=== PATIENT | female | born 1995 | race Caucasian/White ===

== ENCOUNTER 2020-04-07 15:25 | Emergency (ER) | payer OTHER, SELFPAY ==
[2020-04-07 15:35] VITALS: BP 124/80; PULSE 96; RESP 18; TEMP 36.8; O2SAT 99
--- NOTE | 2020-04-07 15:45 | ED.GENADULT ---
HPI - General Adult General Chief complaint: Ear Stated complaint: right ear pain/face pain Time Seen by Provider: 04/07/20 15:49 Source: patient Mode of arrival: ambulatory Limitations: no limitations History of Present Illness HPI narrative: 25-year-old female patient presents to the [facility] with complaints of right ear pain that started this morning. Patient states that she was eating this morning and states had a pop to the right ear immediately started having pain as well as some drainage from the ear. Patient denies any pain go to the ear before this occurred. Patient feels like she is having pain and swelling along the whole right side of the face now. Denies any fevers, chest pain or shortness of breath. Denies any runny nose, stuffy nose or sore throat. Related Data Home Medications Medication Instructions Recorded Confirmed No Home Medications 04/07/20 04/07/20 Allergies Allergy/AdvReac Type Severity Reaction Status Date / Time aspirin Allergy Intermediate Nausea and Verified 04/07/20 15:50 Vomiting tramadol Allergy Intermediate Hives / Verified 04/07/20 15:50 Red Face amoxicillin Allergy Unknown n/v Verified 04/07/20 15:50 ketorolac Allergy Unknown HIVES Verified 04/07/20 15:50 codeine AdvReac Intermediate Nausea and Verified 04/07/20 15:50 Vomiting Review of Systems Review of Systems: Narrative: CONSTITUTIONAL: Denies fever, chills, or sweats. EYES: Denies visual changes, redness, or discharge. ENT: Denies rhinorrhea, congestion, sore throat, positive right otalgia. CARDIOVASCULAR: Denies chest pain, palpitations, or edema. RESPIRATORY: Denies cough or dyspnea. GASTROINTESTINAL: Denies abdominal pain, nausea, vomiting, or diarrhea. GENITOURINARY: Denies dysuria or hematuria. SKIN: Denies rash or itching. MUSCULOSKELETAL: Denies back pain, joint pain, or myalgia. NEUROLOGIC: Denies headache, numbness, or weakness. PSYCHIATRIC: Denies anxiety or depression. [facility] Past Medical History Medical History Asthma GERD (gastroesophageal reflux disease) HTN (hypertension) Surgical History Surgical History Hx of tonsillectomy Social History Social History Smoking status: Never smoker Second hand tobacco smoke exposure: Yes Comments At the time of my signature I agree with nursing past medical history, surgical, social, and family history. There is no relevant family history pertinent to the presenting complaint. Exam Narrative: Exam Narrative: GENERAL: Well-appearing, well-nourished, and in no acute distress. HEAD: Normocephalic, atraumatic. EYES: PERRLA and EOMI. ENT: Nares clear, no rhinorrhea or epistaxis. Mucous membranes moist. Posterior pharynx no erythema, tonsil enlargement, exudates or lesions present. Left TM is clear with no erythema or foreign bodies to canal. There is some fluid noted around the right TM unable to fully see if there is a perforation or not. Patient does have sensitivity to manipulation of the outer ear. NECK: Supple. No lymphadenopathy CHEST: Clear to auscultation. No respiratory distress. HEART: Regular rate and rhythm. No murmur heard. Normal peripheral pulses. ABDOMEN: Soft, nontender, nondistended, normal active bowel sounds. EXTREMITIES: Normal range of motion. No edema. SKIN: Warm, dry, no rash. NEURO: No focal deficits. Alert and oriented x3. Course Vital Signs Vital signs: Vital Signs Temperature 36.8 C 04/07/20 15:35 Pulse Rate 96 04/07/20 15:35 Respiratory Rate 18 04/07/20 15:35 Blood Pressure 124/80 04/07/20 15:35 Pulse Oximetry 99 04/07/20 15:35 Temperature 36.8 C 04/07/20 15:35 Pulse Rate 96 04/07/20 15:35 Respiratory Rate 18 04/07/20 15:35 Blood Pressure 124/80 04/07/20 15:35 Pulse Oximetry 99 04/07/20 15:35 Vital signs revie
== END 2020-04-07 16:00 | disposition home or self-care (01) ==
PROVIDERS: Emergency Provider Nurse Practitioner Family; PCP Family Medicine
DX: H66.91 Otitis media, unspecified, right ear (principal); J45.909 Unspecified asthma, uncomplicated; K21.9 Gastro-esophageal reflux disease without esophagitis; I10 Essential (primary) hypertension
CPT/HCPCS: 99213; G0463

== ENCOUNTER 2020-04-24 16:21 | Emergency (ER) | payer OTHER, SELFPAY ==
[2020-04-24 16:25] VITALS: BP 130/80; PULSE 81; RESP 20; TEMP 37.2; O2SAT 100
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
== END 2020-04-24 16:56 | disposition home or self-care (01) ==
PROVIDERS: Emergency Provider Nurse Practitioner
DX: M54.6 Pain in thoracic spine (principal); M54.5 Low back pain; V49.40XD Driver injured in collision with unspecified motor vehicles in traffic accident, subsequent encounter
CPT/HCPCS: 99213; G0463

== ENCOUNTER 2021-01-27 16:17 | Emergency (ER) | payer OTHER, SELFPAY ==
[2021-01-27 16:25] VITALS: BP 126/70; PULSE 83; RESP 16; TEMP 36.6; O2SAT 100
--- NOTE | 2021-01-27 17:13 | ED.EAR ---
HPI - Ear Problem General Chief complaint: Ear Stated complaint: ear infection Time Seen by Provider: 01/27/21 16:50 Source: patient, RN notes reviewed and old records reviewed Mode of arrival: ambulatory Limitations: no limitations History of Present Illness HPI Narrative: 25 year old female presents to [facility] care with complaints of right ear pain, pain to area in front of right ear and also pain to upper right jaw,denies any dental pain or known caries in right jaw for the past 2 days. Patient reports that she has had some sinus drainage, denies any cough, shortness of breath or any know fevers, chills or sweats. Patient states that she has had ear tubes in the past, taking Tylenol for her discomfort. MD Complaint: ear pain Location: right ear Discharge from ear: Reports no Associated symptoms ear: rhinorrhea Treatment prior to arrival: oral analgesic Related Data Home Medications Medication Instructions Recorded Confirmed metformin mg 01/27/21 norethindrone-e.estradiol-iron tablet 01/27/21 01/27/21 [10/21 ()] Allergies Allergy/AdvReac Type Severity Reaction Status Date / Time aspirin Allergy Intermediate Nausea and Verified 01/27/21 16:23 Vomiting tramadol Allergy Intermediate Hives / Verified 01/27/21 16:23 Red Face amoxicillin Allergy Unknown n/v Verified 01/27/21 16:23 ketorolac Allergy Unknown HIVES Verified 01/27/21 16:23 ibuprofen Allergy Gastrointestinal Verified 01/27/21 16:23 Upset latex Allergy Rash Verified 01/27/21 16:35 codeine AdvReac Intermediate Nausea and Verified 01/27/21 16:23 Vomiting Review of Systems Review of Systems: Narrative: CONSTITUTIONAL: Denies fever, chills, or sweats. EYES: Denies visual changes, redness, or discharge. ENT: Positive clear rhinorrhea, no congestion, sore throat, positive right earotalgia. CARDIOVASCULAR: Denies chest pain, palpitations, or edema. RESPIRATORY: Denies cough or dyspnea. GASTROINTESTINAL: Denies abdominal pain, nausea, vomiting, or diarrhea. GENITOURINARY: Denies dysuria or hematuria. SKIN: Denies rash or itching. MUSCULOSKELETAL: Denies back pain, joint pain, or myalgia. NEUROLOGIC: Denies headache, numbness, or weakness. PSYCHIATRIC: Denies anxiety or depression. All systems reviewed & are unremarkable except as noted in HPI and below PMFSH Past Medical History Medical History (Updated 02/04/21 @ 14:05 by Jillian Clark NP) Asthma GERD (gastroesophageal reflux disease) HTN (hypertension) Surgical History Surgical History (Updated 02/04/21 @ 14:01 by Jillian Clark NP) History of placement of ear tubes Hx of tonsillectomy Family History Family History (Updated 02/04/21 @ 14:03 by Jillian Clark NP) Mother Breast cancer Grandparent Breast cancer History of kidney cancer Father Hypertension Cerebrovascular accident Sibling Lung cancer Social History Social History (Updated 02/04/21 @ 14:03 by Jillian Clark NP) Smoking status: Never smoker Second hand tobacco smoke exposure: Yes Alcohol intake: never Substance use: never Living arrangements: with family Comments At time of signature, agree with nursing past medical, surgical, social and family history. There is no relevant family history pertinent to the presenting complaint Exam Narrative: Exam Narrative: GENERAL: Well-appearing, well-nourished, and in no acute distress. HEAD: Normocephalic, atraumatic. EYES: PERRLA and EOMI. ENT: Nares red swollen turbinates,clear rhinorrhea no epistaxis. Mucous membranes moist.Right TM red with dull light reflex, Left TM normal with good light reflex noted, Throat pink with no lesions or exudates, no tonsil swelling noted, no Jeffrey angina, no evidence of dental abscess or caries in upper teeth on right. NECK: Supple.no lymphadenopathy CHEST: Clear to auscultation. No respiratory distress.SAO2 100% on room air HEART: Regular rate and rhythm. No murmur heard. Normal periphe
== END 2021-01-27 17:34 | disposition home or self-care (01) ==
PROVIDERS: Emergency Provider Registered Nurse; PCP Family Medicine
DX: H65.01 Acute serous otitis media, right ear (principal); J45.909 Unspecified asthma, uncomplicated; K21.9 Gastro-esophageal reflux disease without esophagitis; I10 Essential (primary) hypertension
CPT/HCPCS: 99213; G0463

== ENCOUNTER 2021-05-11 13:26 | Emergency (ER) | payer OTHER, SELFPAY ==
--- NOTE | 2021-05-11 13:27 | ED.URI ---
HPI - URI/Sore Throat General Chief Complaint: Upper Respiratory Infection Stated Complaint: Fatigue, sore Throat, congestion, headache Time Seen by Provider: 05/11/21 13:27 Source: patient and RN notes reviewed History of Present Illness HPI Narrative: Patient is a 26-year-old female who presents the urgent care with complaints of fatigue, sore throat, congestion and headache. Patient states that she has had positive a positive contact with her nephew. Patient son's father is also currently being tested for Covid. Patient states that she thinks that she has strep due to her sore throat . Reports of symptoms starting approximately 4 to 5 days ago. Patient states that even if she has a positive test of Covid that her employer will still make her show up to work . Patient plans to follow-up at a local testing site with her mother for outpatient testing. Patient states that she has been using [id number] cold and flu medication for her symptoms. No other acute complaints. No acute distress noted. Patient aware of the plan of care. Some parts of this dictation were generated by voice recognition software and may contain typographical and/or grammatical inaccuracies. Related Data Home Medications Medication Instructions Recorded Confirmed buspirone [BuSpar] 5 mg PO BID 05/11/21 05/11/21 metformin 500 mg PO DAILY 05/11/21 05/11/21 norethindrone-e.estradiol-iron 1 tablet PO DAILY 05/11/21 05/11/21 [ (28)] Allergies Allergy/AdvReac Type Severity Reaction Status Date / Time aspirin Allergy Intermediate Nausea and Verified 05/11/21 13:39 Vomiting tramadol Allergy Intermediate Hives / Verified 05/11/21 13:39 Red Face amoxicillin Allergy Unknown n/v Verified 05/11/21 13:39 ketorolac Allergy Unknown HIVES Verified 05/11/21 13:39 ibuprofen Allergy Gastrointestinal Verified 05/11/21 13:39 Upset latex Allergy Rash Verified 05/11/21 13:39 codeine AdvReac Intermediate Nausea and Verified 05/11/21 13:39 Vomiting Review of Systems Review of Systems: CONSTITUTIONAL: Denies fever, chills, or sweats. Reports of fatigue EYES: Denies visual changes, redness, or discharge. ENT: Denies rhinorrhea. Reports of sinus congestion and sore throat CARDIOVASCULAR: Denies chest pain, palpitations, or edema. RESPIRATORY: Denies cough or dyspnea. GASTROINTESTINAL: Denies abdominal pain, nausea, vomiting, or diarrhea. GENITOURINARY: Denies dysuria or hematuria. SKIN: Denies rash or itching. MUSCULOSKELETAL: Denies back pain, joint pain, or myalgia. NEUROLOGIC: Reports of intermittent headaches All other systems reviewed are negative, except as documented in HPI. [facility] Past Medical History Medical History (Updated 05/11/21 @ 13:48 by TISHA Roe) Asthma GERD (gastroesophageal reflux disease) HTN (hypertension) Surgical History Surgical History (Updated 02/04/21 @ 14:01 by Jillian Clark NP) History of placement of ear tubes Hx of tonsillectomy Family History Family History (Updated 02/04/21 @ 14:03 by Jillian Clark NP) Mother Breast cancer Grandparent Breast cancer History of kidney cancer Father Hypertension Cerebrovascular accident Sibling Lung cancer Social History Social History (Updated 02/04/21 @ 14:03 by Jillian Clark NP) Smoking status: Never smoker Second hand tobacco smoke exposure: Yes Alcohol intake: never Substance use: never Comments At the time of my signature, I reviewed and agree with the nursing past medical, surgical, social, and family history. There is no relevant family history pertinent to the patient complaint. Exam Narrative: GENERAL: This is a well-nourished, well-developed patient, in no apparent distress. HEAD: normocephalic, atraumatic. EYES: PERRL. Sclera clear/white. Vision is grossly intact. EARS: External ears normal, auditory canals clear and without drainage, cerumen noted bilaterally, TMs normal with
[2021-05-11 13:30] VITALS: BP 135/82; PULSE 80; RESP 20; TEMP 36.6; O2SAT 99
== END 2021-05-11 13:54 | disposition home or self-care (01) ==
PROVIDERS: Emergency Provider Nurse Practitioner Family; PCP Family Medicine
DX: J02.9 Acute pharyngitis, unspecified (principal); Z20.822 Contact with and (suspected) exposure to COVID-19; J45.909 Unspecified asthma, uncomplicated; K21.9 Gastro-esophageal reflux disease without esophagitis; I10 Essential (primary) hypertension
CPT/HCPCS: 87081; 87880; 99213; G0463

== ENCOUNTER 2021-06-06 14:30 | Emergency (ER) | payer OTHER, SELFPAY ==
[2021-06-06 14:40] VITALS: BP 126/63; PULSE 98; RESP 18; TEMP 37.1; O2SAT 100
--- NOTE | 2021-06-06 14:56 | ED.URI ---
HPI - URI/Sore Throat General Chief Complaint: Upper Respiratory Infection Stated Complaint: Sore Throat Time Seen by Provider: 06/06/21 14:45 Source: patient and RN notes reviewed History of Present Illness HPI Narrative: Patient is a 26-year-old female who presents the urgent care with complaints of a sore throat since yesterday. Patient states she also has tender swelling glands. Denies of any fever, nausea, vomiting or other upper respiratory complaints. States that she has been taking liquid Tylenol for the pain. Patient states that she talks a lot at work and is [id number] with a lot of people and believes that she will be unable to work tomorrow . Patient also states that she is not concerned of Covid . No other acute complaints. No acute distress noted. Patient under the plan of care. Some parts of this dictation were generated by voice recognition software and may contain typographical and/or grammatical inaccuracies. Related Data Home Medications Medication Instructions Recorded Confirmed buspirone [BuSpar] 5 mg PO BID 05/11/21 06/06/21 metformin 500 mg PO DAILY 05/11/21 06/06/21 norethindrone-e.estradiol-iron 1 tablet PO DAILY 05/11/21 06/06/21 [ ()] Allergies Allergy/AdvReac Type Severity Reaction Status Date / Time aspirin Allergy Intermediate Nausea and Verified 06/06/21 14:47 Vomiting tramadol Allergy Intermediate Hives / Verified 06/06/21 14:47 Red Face amoxicillin Allergy Unknown n/v Verified 06/06/21 14:47 ketorolac Allergy Unknown HIVES Verified 06/06/21 14:47 ibuprofen Allergy Gastrointestinal Verified 06/06/21 14:47 Upset latex Allergy Rash Verified 06/06/21 14:47 codeine AdvReac Intermediate Nausea and Verified 06/06/21 14:47 Vomiting Review of Systems Review of Systems: CONSTITUTIONAL: Denies fever, chills, or sweats. EYES: Denies visual changes, redness, or discharge. ENT: Denies rhinorrhea, congestion, or otalgia. Reports of sore throat CARDIOVASCULAR: Denies chest pain, palpitations, or edema. RESPIRATORY: Denies cough or dyspnea. GASTROINTESTINAL: Denies abdominal pain, nausea, vomiting, or diarrhea. GENITOURINARY: Denies dysuria or hematuria. SKIN: Denies rash or itching. MUSCULOSKELETAL: Denies back pain, joint pain, or myalgia. NEUROLOGIC: Denies headache, numbness, or weakness. All other systems reviewed are negative, except as documented in HPI. [facility] Past Medical History Medical History (Updated 06/06/21 @ 15:03 by TISHA Roe) Asthma GERD (gastroesophageal reflux disease) HTN (hypertension) Surgical History Surgical History (Updated 02/04/21 @ 14:01 by Jillian Clark NP) History of placement of ear tubes Hx of tonsillectomy Family History Family History (Updated 02/04/21 @ 14:03 by Jillian Clark NP) Mother Breast cancer Grandparent Breast cancer History of kidney cancer Father Hypertension Cerebrovascular accident Sibling Lung cancer Social History Social History (Updated 02/04/21 @ 14:03 by Jillian Clark NP) Smoking status: Never smoker Second hand tobacco smoke exposure: Yes Alcohol intake: never Substance use: never Comments At the time of my signature, I reviewed and agree with the nursing past medical, surgical, social, and family history. There is no relevant family history pertinent to the patient complaint. Exam Narrative: GENERAL: This is a well-nourished, well-developed patient, in no apparent distress. HEAD: normocephalic, atraumatic. EYES: PERRL. Sclera clear/white. Vision is grossly intact. EARS: External ears normal, auditory canals clear and without drainage, TMs normal without perforation. Hearing grossly intact. NOSE: External nose normal with no obvious nasal discharge, nares without redness, no rhinorrhea. THROAT: Mucous membranes moist, posterior pharynx clear. Mild postnasal drainage NECK: Neck supple, mild bilateral tender lymphadenopathy CA
== END 2021-06-06 15:05 | disposition home or self-care (01) ==
PROVIDERS: Emergency Provider Nurse Practitioner Family; PCP Family Medicine
DX: J02.9 Acute pharyngitis, unspecified (principal); I10 Essential (primary) hypertension
CPT/HCPCS: 87081; 87880; 99213; G0463

== ENCOUNTER 2021-12-18 16:16 | Emergency (ER) | payer OTHER, SELFPAY ==
[2021-12-18 16:29] VITALS: BP 138/77; PULSE 98; RESP 24; TEMP 37.2; O2SAT 100
--- NOTE | 2021-12-18 16:41 | ED.URI ---
HPI - URI/Sore Throat General Chief Complaint: Upper Respiratory Infection Stated Complaint: fatigue sore throat headache Time Seen by Provider: 12/18/21 16:35 Source: patient and RN notes reviewed Mode of arrival: ambulatory Limitations: no limitations History of Present Illness MD elicited complaint: cough and sore throat Related Data Home Medications Medication Instructions Recorded Confirmed etonogestrel-ethinyl estradiol See Rx Instructions .ROUTE .COMPLEX 12/18/21 12/18/21 [[id number]] Allergies Allergy/AdvReac Type Severity Reaction Status Date / Time aspirin Allergy Intermediate Nausea and Verified 12/18/21 16:18 Vomiting tramadol Allergy Intermediate Hives / Verified 12/18/21 16:18 Red Face amoxicillin Allergy Unknown n/v Verified 12/18/21 16:18 ketorolac Allergy Unknown HIVES Verified 12/18/21 16:18 ibuprofen Allergy Gastrointestinal Verified 12/18/21 16:18 Upset latex Allergy Rash Verified 12/18/21 16:18 codeine AdvReac Intermediate Nausea and Verified 12/18/21 16:18 Vomiting Review of Systems Review of Systems: CONSTITUTIONAL: Report malaise. Denies chills, sweats, or fever. EYES: Denies visual changes, redness, or discharge. ENT: Denies rhinorrhea, congestion, sinus pain, otalgia. Reports sore throat. CARDIOVASCULAR: Denies chest pain, palpitations, or edema. RESPIRATORY: Reports cough. Denies dyspnea. GASTROINTESTINAL: Denies abdominal pain, nausea, vomiting, diarrhea SKIN: Denies rash or itching. MUSCULOSKELETAL: Denies myalgia. NEUROLOGIC: Reports headache. All systems reviewed & are unremarkable except as noted in HPI and below PMFSH Past Medical History Medical History (Updated 12/18/21 @ 16:55 by Maddie Strong NP) Asthma GERD (gastroesophageal reflux disease) HTN (hypertension) Surgical History Surgical History (Updated 02/04/21 @ 14:01 by Jillian Clark NP) History of placement of ear tubes Hx of tonsillectomy Family History Family History (Updated 02/04/21 @ 14:03 by Jillian Clark NP) Mother Breast cancer Grandparent Breast cancer History of kidney cancer Father Hypertension Cerebrovascular accident Sibling Lung cancer Social History Social History (Updated 02/04/21 @ 14:03 by Jillian L. Eduardo, [employer]) Smoking status: Never smoker Second hand tobacco smoke exposure: Yes Alcohol intake: never Substance use: never Comments At time of signature, agree with nursing past medical, surgical, social and family history. There is no relevant family history pertinent to the presenting complaint Exam Narrative: GENERAL: Well-appearing, well-nourished, and in no acute distress. HEAD: Normocephalic EYES: PERRLA, conjunctivae clear ENT: Nares clear, turbinates edematous and erythematous, clear discharge. Mucous membranes moist. Right TM not visible due to excess cerumen, left TM pearly hodge with dull light reflex with tympanostomy tube noted, possibly dislodged in or clogged with wax; no tragal tenderness. Oropharynx not erythematous without lesions. Tonsils not enlarged and without exudate, no drooling, no hoarseness, no trismus, uvula midline. NECK: Supple. No lymphadenopathy CHEST: Clear to auscultation, breath sounds equal. No wheezing, rhonchi, rales, or stridor. No respiratory distress, speaks in full sentences. HEART: Regular rate and rhythm. No murmur heard. SKIN: Warm, dry, no rash. NEURO: Alert and oriented x3. PSYCH: Normal mood and affect Course Course Emergency Course: Patient is aware of diagnosis, understands and agrees to treatment plan. Anticipatory guidance given. Patient agrees to follow-up as directed and is aware of reasons to seek care at the emergency department. Portions of this record may have been created with voice recognition software Level of Care: Express Care Visit Vital Signs Vital signs: Vital Signs Temperature 98.9 F 12/18/21 16:29 Pulse Rate 98 12/18/21 16:29 Respiratory Rate 24 H 03
[2021-12-18 16:42] VITALS: BP 138/77; PULSE 98; RESP 24; TEMP 37.2; O2SAT 100
== END 2021-12-18 17:00 | disposition home or self-care (01) ==
PROVIDERS: Emergency Provider Nurse Practitioner; PCP Family Medicine
DX: J06.9 Acute upper respiratory infection, unspecified (principal); H69.92 Unspecified Eustachian tube disorder, left ear; J45.909 Unspecified asthma, uncomplicated; K21.9 Gastro-esophageal reflux disease without esophagitis; I10 Essential (primary) hypertension
CPT/HCPCS: 87081; 87880; 99213; G0463

== ENCOUNTER 2021-12-24 16:34 | Emergency (ER) | payer OTHER, SELFPAY ==
--- NOTE | 2021-12-24 16:36 | ED.SKABFB ---
HPI - Skin/Abscess/Foreign Bdy General Chief complaint: Skin/Abscess/Foreign Body Stated complaint: rash on legs Time Seen by Provider: 12/24/21 16:37 Source: patient, family and RN notes reviewed History of Present Illness HPI narrative: Patient is a 26-year-old female who presents to the urgent care with complaints of scattered rash to legs, abdomen and arms. Patient states that it started 3 days ago. States that she is had the spots in the past and they seem to go away on their own . Patient was seen here just recently and given a steroid which she noticed the spots started directly after taking the steroid. Patient stopped the medication and states that it has slightly spread since then. States that they itch. Patient is not taking anything [id number] for her symptoms. No other acute complaints. No acute distress noted. Patient and mother aware of the plan of care. Some parts of this dictation were generated by voice recognition software and may contain typographical and/or grammatical inaccuracies. Related Data Home Medications Medication Instructions Recorded Confirmed etonogestrel-ethinyl estradiol See Rx Instructions .ROUTE .COMPLEX 12/18/21 12/24/21 [[id number]] Allergies Allergy/AdvReac Type Severity Reaction Status Date / Time aspirin Allergy Intermediate Nausea and Verified 12/24/21 16:56 Vomiting tramadol Allergy Intermediate Hives / Verified 12/24/21 16:56 Red Face amoxicillin Allergy Unknown n/v Verified 12/24/21 16:56 ketorolac Allergy Unknown HIVES Verified 12/24/21 16:56 ibuprofen Allergy Gastrointestinal Verified 12/24/21 16:56 Upset latex Allergy Rash Verified 12/24/21 16:56 codeine AdvReac Intermediate Nausea and Verified 12/24/21 16:56 Vomiting Review of Systems Review of Systems: CONSTITUTIONAL: Denies fever, chills, or sweats. EYES: Denies visual changes, redness, or discharge. ENT: Denies rhinorrhea, congestion, sore throat, or otalgia. CARDIOVASCULAR: Denies chest pain, palpitations, or edema. RESPIRATORY: Denies cough or dyspnea. GASTROINTESTINAL: Denies abdominal pain, nausea, vomiting, or diarrhea. GENITOURINARY: Denies dysuria or hematuria. SKIN: Reports of scattered rash to bilateral legs, abdomen and arms MUSCULOSKELETAL: Denies back pain, joint pain, or myalgia. NEUROLOGIC: Denies headache, numbness, or weakness. All other systems reviewed are negative, except as documented in HPI. [facility] [place] Past Medical History Medical History (Updated 12/24/21 @ 17:18 by TISHA Roe) Asthma GERD (gastroesophageal reflux disease) HTN (hypertension) Surgical History Surgical History (Updated 02/04/21 @ 14:01 by Jillian Clark NP) History of placement of ear tubes Hx of tonsillectomy Family History Family History (Updated 02/04/21 @ 14:03 by Jillian Clark NP) Mother Breast cancer Grandparent Breast cancer History of kidney cancer Father Hypertension Cerebrovascular accident Sibling Lung cancer Social History Social History (Updated 02/04/21 @ 14:03 by Jillian Clark NP) Smoking status: Never smoker Second hand tobacco smoke exposure: Yes Alcohol intake: never Substance use: never Comments At the time of my signature, I reviewed and agree with the nursing past medical, surgical, social, and family history. There is no relevant family history pertinent to the patient complaint. Exam Narrative: GENERAL: This is a well-nourished, well-developed patient, in no apparent distress. HEAD: normocephalic, atraumatic. EYES: PERRL. Sclera clear/white. Vision is grossly intact. EARS: External ears normal NOSE: External nose normal with no obvious nasal discharge, nares without redness, no rhinorrhea. THROAT: Mucous membranes moist NECK: Neck supple CARDIOVASCULAR: Regular rate and rhythm without murmurs, gallops, or rubs. RESPIRATORY: Clear to auscultation. Breath sounds equal bilaterally. No wheezes, rales, or rhonchi
[2021-12-24 16:39] VITALS: BP 122/74; PULSE 96; RESP 18; TEMP 36.8; O2SAT 100
== END 2021-12-24 17:25 | disposition home or self-care (01) ==
PROVIDERS: Emergency Provider Nurse Practitioner Family; PCP Family Medicine
DX: S30.861A Insect bite (nonvenomous) of abdominal wall, initial encounter (principal); S80.862A Insect bite (nonvenomous), left lower leg, initial encounter; S80.861A Insect bite (nonvenomous), right lower leg, initial encounter; S50.862A Insect bite (nonvenomous) of left forearm, initial encounter; S50.861A Insect bite (nonvenomous) of right forearm, initial encounter; W57.XXXA Bitten or stung by nonvenomous insect and other nonvenomous arthropods, initial encounter; J45.909 Unspecified asthma, uncomplicated; K21.9 Gastro-esophageal reflux disease without esophagitis; I10 Essential (primary) hypertension
CPT/HCPCS: 99213; G0463

== ENCOUNTER 2022-05-22 19:17 | Emergency (ER) | payer OTHER, SELFPAY ==
[2022-05-22 19:25] VITALS: BP 126/81; PULSE 75; RESP 16; TEMP 37.1; O2SAT 100
--- NOTE | 2022-05-22 19:27 | ED.URI ---
HPI - URI/Sore Throat General Stated Complaint: sore throat Time Seen by Provider: 05/22/22 19:27 Source: patient and RN notes reviewed History of Present Illness HPI Narrative: Patient is a 27-year-old female who presents the urgent care with complaints of a sore throat and nasal congestion since Monday. Patient states that their entire family tested for COVID on and only her mother was positive. Patient denies any fever, nausea or vomiting. Denies any other sick symptoms. Denies any ill exposures to strep. Patient has been taking Claritin. No other acute complaints. No acute distress noted. Patient aware of the plan of care. Some parts of this dictation were generated by voice recognition software and may contain typographical and/or grammatical inaccuracies. Related Data Home Medications Medication Instructions Recorded Confirmed norgestimate 0.25 mg-ethinyl tablet 05/22/22 05/22/22 estradiol 35 mcg tablet (Naya) Allergies Allergy/AdvReac Type Severity Reaction Status Date / Time aspirin Allergy Intermediate Nausea and Verified 05/22/22 19:34 Vomiting tramadol Allergy Intermediate Hives / Verified 05/22/22 19:34 Red Face amoxicillin Allergy Unknown n/v Verified 05/22/22 19:34 ketorolac Allergy Unknown HIVES Verified 05/22/22 19:34 ibuprofen Allergy Gastrointestinal Verified 05/22/22 19:34 Upset latex Allergy Rash Verified 05/22/22 19:34 codeine AdvReac Intermediate Nausea and Verified 05/22/22 19:34 Vomiting Review of Systems Review of Systems: CONSTITUTIONAL: Denies fever, chills, or sweats. EYES: Denies visual changes, redness, or discharge. ENT: Denies rhinorrhea, congestion, otalgia. Reports of sore throat and nasal congestion CARDIOVASCULAR: Denies chest pain, palpitations, or edema. RESPIRATORY: Denies cough or dyspnea. GASTROINTESTINAL: Denies abdominal pain, nausea, vomiting, or diarrhea. GENITOURINARY: Denies dysuria or hematuria. SKIN: Denies rash or itching. MUSCULOSKELETAL: Denies back pain, joint pain, or myalgia. NEUROLOGIC: Denies headache, numbness, or weakness. All other systems reviewed are negative, except as documented in HPI. [facility] Past Medical History Medical History (Updated 05/22/22 @ 19:39 by TISHA Roe) Asthma GERD (gastroesophageal reflux disease) HTN (hypertension) Surgical History Surgical History (Updated 02/04/21 @ 14:01 by Jillian Clark NP) History of placement of ear tubes Hx of tonsillectomy Family History Family History (Updated 02/04/21 @ 14:03 by Jillian Clark NP) Mother Breast cancer Grandparent Breast cancer History of kidney cancer Father Hypertension Cerebrovascular accident Sibling Lung cancer Social History Social History (Updated 02/04/21 @ 14:03 by Jillian Clark NP) Smoking status: Never smoker Second hand tobacco smoke exposure: Yes Alcohol intake: never Substance use: never Comments At the time of my signature, I reviewed and agree with the nursing past medical, surgical, social, and family history. There is no relevant family history pertinent to the patient complaint. Exam Narrative: GENERAL: This is a well-nourished, well-developed patient, in no apparent distress. HEAD: normocephalic, atraumatic. EYES: PERRL. Sclera clear/white. Vision is grossly intact. EARS: External ears normal, auditory canals clear and without drainage, TMs normal without perforation. Hearing grossly intact. NOSE: External nose normal with no obvious nasal discharge, mild bilateral erythemic nares with clear to yellow rhinorrhea THROAT: Mucous membranes moist, posterior pharynx clear. Mild postnasal drainage NECK: Neck supple, non-tender without lymphadenopathy CARDIOVASCULAR: Regular rate and rhythm without murmurs, gallops, or rubs. RESPIRATORY: Clear to auscultation. Breath sounds equal bilaterally. No wheezes, rales, or rhonchi. SKIN: warm, intact with no suspicious lesions o
== END 2022-05-22 19:50 | disposition home or self-care (01) ==
PROVIDERS: Emergency Provider Nurse Practitioner Family; PCP Family Medicine
DX: J02.9 Acute pharyngitis, unspecified (principal); J45.909 Unspecified asthma, uncomplicated; K21.9 Gastro-esophageal reflux disease without esophagitis; I10 Essential (primary) hypertension
CPT/HCPCS: 87081; 99212; G0463

== ENCOUNTER 2022-07-23 11:20 | Emergency (ER) | payer OTHER, SELFPAY ==
[2022-07-23 11:24] VITALS: BP 116/63; PULSE 76; RESP 20; TEMP 36.6; O2SAT 99
--- NOTE | 2022-07-23 11:43 | ED.EAR ---
HPI - Ear Problem General Chief complaint: Ear Stated complaint: ear pressure Time Seen by Provider: 07/23/22 11:44 Source: patient Mode of arrival: ambulatory Limitations: no limitations History of Present Illness HPI Narrative: 27-year-old female presents with complaint of bilateral ear pain for 1 week. Reports that right ear is more painful than left ear. Complaining of decreased hearing from both ears. Also reports nasal congestion. No fever or chills. No nausea from diarrhea. No coughing. All systems reviewed and negative except as noted above. Related Data Home Medications Medication Instructions Recorded Confirmed norgestimate 0.25 mg-ethinyl See Rx Instructions .Route .COMPLEX 05/22/22 07/23/22 estradiol 35 mcg tablet (Naya) Allergies Allergy/AdvReac Type Severity Reaction Status Date / Time aspirin Allergy Intermediate Nausea and Verified 07/23/22 11:37 Vomiting tramadol Allergy Intermediate Hives / Verified 07/23/22 11:37 Red Face amoxicillin Allergy Unknown n/v Verified 07/23/22 11:37 ketorolac Allergy Unknown HIVES Verified 07/23/22 11:37 ibuprofen Allergy Gastrointestinal Verified 07/23/22 11:37 Upset latex Allergy Rash Verified 07/23/22 11:37 codeine AdvReac Intermediate Nausea and Verified 07/23/22 11:37 Vomiting Review of Systems Review of Systems: CONSTITUTIONAL: Denies fever, chills, or sweats. EYES: Denies visual changes, redness, or discharge. ENT: Denies rhinorrhea. Reports congestion, bilateral ear pain and decreased hearing. Denies sore throat. CARDIOVASCULAR: Denies chest pain, palpitations, or edema. RESPIRATORY: Denies cough or dyspnea. GASTROINTESTINAL: Denies abdominal pain, nausea, vomiting, or diarrhea. GENITOURINARY: Denies dysuria or hematuria. SKIN: Denies rash or itching. MUSCULOSKELETAL: Denies back pain, joint pain, or myalgia. NEUROLOGIC: Denies headache, numbness, or weakness. PSYCHIATRIC: Denies anxiety or depression. All other systems reviewed are negative, except as documented in HPI. [facility] Past Medical History Medical History (Updated 07/23/22 @ 12:04 by Steffi Pugh NP) Asthma GERD (gastroesophageal reflux disease) HTN (hypertension) Surgical History Surgical History (Updated 02/04/21 @ 14:01 by Jillian Clark NP) History of placement of ear tubes Hx of tonsillectomy Family History Family History (Updated 02/04/21 @ 14:03 by Jillian Clark NP) Mother Breast cancer Grandparent Breast cancer History of kidney cancer Father Hypertension Cerebrovascular accident Sibling Lung cancer Social History Social History (Updated 02/04/21 @ 14:03 by Jillian Clark NP) Smoking status: Never smoker Second hand tobacco smoke exposure: Yes Alcohol intake: never Substance use: never Comments At time of signature, agree with nursing past medical, surgical, social and family history. There is no relevant family history pertinent to the presenting complaint. Exam Narrative: GENERAL: This is a well-nourished, well-developed patient, in no apparent distress. HEAD: normocephalic, atraumatic. EYES: PERRL. Sclera clear/white. Vision is grossly intact. EARS: External ears normal. Cerumen impaction to both ear canals. Irrigated with water and hydrogen peroxide. Left TM erythematous and retracted. Tube is present. Right TM not visible due to continued wax impaction, tube noted. NOSE: External nose normal with no obvious nasal discharge, moderate congestion. THROAT: Mucous membranes moist, posterior pharynx clear. NECK: Neck supple, non-tender without lymphadenopathy, masses or thyromegaly. CARDIOVASCULAR: Regular rate and rhythm without murmurs, gallops, or rubs. RESPIRATORY: Clear to auscultation. Breath sounds equal bilaterally. No wheezes, rales, or rhonchi. SKIN: warm, Dry, intact with no suspicious lesions or rash, good texture and turgor. NEURO: awake, alert, and oriented to person, place and ti
== END 2022-07-23 12:07 | disposition home or self-care (01) ==
PROVIDERS: Emergency Provider Nurse Practitioner Family; PCP Family Medicine
DX: H66.92 Otitis media, unspecified, left ear (principal); J01.90 Acute sinusitis, unspecified; H61.23 Impacted cerumen, bilateral; J45.909 Unspecified asthma, uncomplicated; K21.9 Gastro-esophageal reflux disease without esophagitis; I10 Essential (primary) hypertension
CPT/HCPCS: 99213; G0463

== ENCOUNTER 2022-10-12 18:00 | Emergency (ER) | payer OTHER, SELFPAY ==
[2022-10-12 18:07] VITALS: BP 114/70; PULSE 77; RESP 16; TEMP 36.9; O2SAT 100
--- NOTE | 2022-10-12 18:22 | ED.DENTAL ---
HPI - Dental/Oral General Chief complaint: Dental/Oral Stated complaint: Jaw/Neck Pain Time Seen by Provider: 10/12/22 18:15 Source: patient Mode of arrival: ambulatory Limitations: no limitations History of Present Illness HPI Narrative: Ms. Shoemaker is a 27-year-old female patient presenting to the clinic today with complaints of neck and jaw pain times 2 days. She reports that she has some poor dentition and she is having swelling in her jaw and the pain is radiating into her neck. She denies any ear pain. Related Data Home Medications Medication Instructions Recorded Confirmed norgestimate 0.25 mg-ethinyl See Rx Instructions .Route .COMPLEX 05/22/22 10/12/22 estradiol 35 mcg tablet (Naya) Allergies Allergy/AdvReac Type Severity Reaction Status Date / Time aspirin Allergy Intermediate Nausea and Verified 10/12/22 18:56 Vomiting tramadol Allergy Intermediate Hives / Verified 10/12/22 18:56 Red Face amoxicillin Allergy Unknown n/v Verified 10/12/22 18:56 ketorolac Allergy Unknown HIVES Verified 10/12/22 18:56 ibuprofen Allergy Gastrointestinal Verified 10/12/22 18:56 Upset latex Allergy Rash Verified 10/12/22 18:56 codeine AdvReac Intermediate Nausea and Verified 10/12/22 18:56 Vomiting Review of Systems Review of Systems: Pertinent positives per HPI. Patient denies any fever, chills, rash, headache, visual changes, dizziness, cough, runny nose, sore throat, shortness of breath, chest pain, palpitations, nausea, vomiting, diarrhea, constipation, abdominal pain, or any urinary issues. PMFSH Past Medical History Medical History Asthma GERD (gastroesophageal reflux disease) HTN (hypertension) Surgical History Surgical History History of placement of ear tubes Hx of tonsillectomy Family History Family History Mother Breast cancer Grandparent Breast cancer History of kidney cancer Father Hypertension Cerebrovascular accident Sibling Lung cancer Social History Social History Smoking status: Never smoker Second hand tobacco smoke exposure: Yes Alcohol intake: never Substance use: never Comments At the time of my signature, I reviewed and agree with the nursing past medical, surgical, social, and family history. There is no relevant family history pertinent to the patient complaint. Exam Narrative: General: Well-developed, well nourished, in no apparent distress Head: Normocephalic, atraumatic Eyes: Pupils equally round and reactive to light bilaterally, EOM intact, sclera and conjunctive clear, no discharge, lids normal Ears: TMs intact and clear, ear canals clear, no drainage, grossly hearing normal. Nose: Nares patent, no discharge, no inflammation, no sinus tenderness. Mouth: Oropharynx without lesions or masses, poor dentition, MMM. infected number 32 molar-tender to palpation with swelling noted to the right lower jaw Neck: Supple, trachea midline, no enlargement of anterior or posterior cervical nodes, no thyroid masses or goiter palpable. Cardio: Regular rate and rhythm, s1 and s2 normal, no murmur appreciated. Resp: Clear to auscultation bilaterally anteriorly and posteriorly, no rhonchi, rales, wheezing or rubs Course Course Emergency Course: Portions of this record may have been created with voice recognition software. Level of Care: Express Care Visit Vital Signs Vital signs: Vital Signs Temperature 36.9 C 10/12/22 18:07 Pulse Rate 77 10/12/22 18:07 Respiratory Rate 16 10/12/22 18:07 Blood Pressure 114/70 10/12/22 18:07 Pulse Oximetry 100 10/12/22 18:07 Oxygen Delivery Room Air 10/12/22 18:07 Temperature 36.9 C 10/12/22 18:07 Pulse Rate 77 10/12/22 18:07 Re
== END 2022-10-12 18:25 | disposition home or self-care (01) ==
PROVIDERS: Emergency Provider Nurse Practitioner Family; PCP Family Medicine
DX: K04.7 Periapical abscess without sinus (principal); J45.909 Unspecified asthma, uncomplicated; K21.9 Gastro-esophageal reflux disease without esophagitis; I10 Essential (primary) hypertension
CPT/HCPCS: 99213; G0463

== ENCOUNTER 2022-11-02 12:28 | Emergency (ER) | payer OTHER, SELFPAY ==
[2022-11-02 12:36] VITALS: BP 123/75; PULSE 99; RESP 16; TEMP 37; O2SAT 100
--- NOTE | 2022-11-02 13:04 | ED.URI ---
HPI - URI/Sore Throat General Chief Complaint: Upper Respiratory Infection Stated Complaint: upper respiratory Time Seen by Provider: 11/02/22 13:04 Source: patient and RN notes reviewed Mode of arrival: ambulatory Limitations: no limitations History of Present Illness HPI Narrative: 27-year-old female presented for complaint of sore throat, sinus congestion and drainage, and headache over the last 3 days. Endorses son has been sick. Denies shortness of breath, wheezing, nausea, vomiting, diarrhea, fevers or chills. Has not taken anything for symptoms. MD elicited complaint: cough Related Data Home Medications Medication Instructions Recorded Confirmed norgestimate 0.25 mg-ethinyl See Rx Instructions .Route .COMPLEX 05/22/22 11/02/22 estradiol 35 mcg tablet (Naya) Allergies Allergy/AdvReac Type Severity Reaction Status Date / Time aspirin Allergy Intermediate Nausea and Verified 11/02/22 12:54 Vomiting tramadol Allergy Intermediate Hives / Verified 11/02/22 12:54 Red Face amoxicillin Allergy Unknown n/v Verified 11/02/22 12:54 ketorolac Allergy Unknown HIVES Verified 11/02/22 12:54 ibuprofen Allergy Gastrointestinal Verified 11/02/22 12:54 Upset latex Allergy Rash Verified 11/02/22 12:54 codeine AdvReac Intermediate Nausea and Verified 11/02/22 12:54 Vomiting Review of Systems Review of Systems: CONSTITUTIONAL: Denies malaise, chills, sweats, fever EYES: Denies visual changes, redness, or discharge ENT: Reports rhinorrhea, congestion, sinus pain, sore throat CARDIOVASCULAR: Denies chest pain, palpitations, edema RESPIRATORY: Reports cough, post nasal drainage. Denies dyspnea GASTROINTESTINAL: Denies abdominal pain, nausea, vomiting, diarrhea SKIN: Denies rash or itching MUSCULOSKELETAL: denies myalgia PMFSH Past Medical History Medical History Asthma GERD (gastroesophageal reflux disease) HTN (hypertension) Surgical History Surgical History History of placement of ear tubes Hx of tonsillectomy Family History Family History Mother Breast cancer Grandparent Breast cancer History of kidney cancer Father Hypertension Cerebrovascular accident Sibling Lung cancer Social History Social History Smoking status: Never smoker Second hand tobacco smoke exposure: Yes Alcohol intake: never Substance use: never Living arrangements: with family Exam Narrative: GENERAL: well-appearing EYES: conjunctivae clear ENT: Mucous membranes moist. TMs pearly hodge with dull light reflex bilaterally; no tragal tenderness. Oropharynx mildly erythematous without lesions or exudate, no drooling, no hoarseness, no trismus, uvula midline. CHEST: Clear to auscultation, breath sounds equal. No respiratory distress, speaks in full sentences. HEART: Regular rate and rhythm. No murmur heard. SKIN: Warm, dry, no rash. MUSC: Right wrist splint. Course Course Emergency Course: Patient is aware of diagnosis, understands and agrees to treatment plan. Anticipatory guidance given. Patient agrees to follow-up as directed and is aware of reasons to seek care at the emergency department. Portions of this record may have been created with voice recognition software Level of Care: Express Care Visit Vital Signs Vital signs: Vital Signs Temperature 98.6 F 11/02/22 12:36 Pulse Rate 99 11/02/22 12:36 Respiratory Rate 16 11/02/22 12:36 Blood Pressure 123/75 11/02/22 12:36 Pulse Oximetry 100 11/02/22 12:36 Oxygen Delivery Room Air 11/02/22 12:36 Temperature 98.6 F 11/02/22 12:36 Pulse Rate 99 11/02/22 12:36 Respiratory Rate 16 11/02/22 12:36 Blood Pressure 123/75 11/02/22 12:36 Pulse Oximetry 100 11/02/22 12:36 Oxygen
== END 2022-11-02 13:15 | disposition home or self-care (01) ==
PROVIDERS: Emergency Provider Nurse Practitioner Family; PCP Family Medicine
DX: J02.9 Acute pharyngitis, unspecified (principal); B34.9 Viral infection, unspecified; J45.909 Unspecified asthma, uncomplicated; K21.9 Gastro-esophageal reflux disease without esophagitis; I10 Essential (primary) hypertension
CPT/HCPCS: 87081; 87880; 99213; G0463

== ENCOUNTER 2022-11-12 18:02 | Emergency (ER) | payer OTHER, SELFPAY ==
--- NOTE | ~2022-11-12 | XR_ITS ---
EXAMINATION: XR chest 2V Exam Date/Time: 11/12/2022 18:22 LOG CLERK HISTORY: COUGH X 1 MONTH. Comparison: 10/06/2017. RESULT: Lines, tubes, and devices: None. Lungs and pleura: Clear. Cardiomediastinal silhouette: Stable. Other: No acute osseous or upper abdominal finding. IMPRESSION: No acute cardiopulmonary process. Reviewed, dictated and finalized at location K. CLERK
[2022-11-12 18:06] VITALS: BP 125/61; PULSE 82; RESP 20; TEMP 36.9; O2SAT 99
--- NOTE | 2022-11-12 18:18 | ED.URI ---
HPI - URI/Sore Throat General Chief Complaint: Upper Respiratory Infection Stated Complaint: coughing mucus and blood Time Seen by Provider: 11/12/22 18:37 History of Present Illness HPI Narrative: Patient presents with a persistent cough. Patient states she has had the coughing on and off for the last month. And is now worried that she has pneumonia. Patient denies any shortness of breath and no chest pain denies smoking or being around cigarette smoke. Patient states she does have a history of asthma but has not been using her inhaler any more than normal. Related Data Home Medications Medication Instructions Recorded Confirmed norgestimate 0.25 mg-ethinyl See Rx Instructions .Route .COMPLEX 05/22/22 11/02/22 estradiol 35 mcg tablet (Naya) Allergies Allergy/AdvReac Type Severity Reaction Status Date / Time aspirin Allergy Intermediate Nausea and Verified 11/02/22 12:54 Vomiting tramadol Allergy Intermediate Hives / Verified 11/02/22 12:54 Red Face amoxicillin Allergy Unknown n/v Verified 11/02/22 12:54 ketorolac Allergy Unknown HIVES Verified 11/02/22 12:54 ibuprofen Allergy Gastrointestinal Verified 11/02/22 12:54 Upset latex Allergy Rash Verified 11/02/22 12:54 codeine AdvReac Intermediate Nausea and Verified 11/02/22 12:54 Vomiting Review of Systems Review of Systems: CONSTITUTIONAL: Denies chills, or sweats. Reports fever and generalized body aches EYES: Denies visual changes, redness, or discharge. ENT: Denies otalgia. Reports nasal congestion runny nose and sore throat CARDIOVASCULAR: Denies chest pain, palpitations, or edema. RESPIRATORY: Denies dyspnea. Reports occasional cough GASTROINTESTINAL: Denies abdominal pain, nausea, vomiting, or diarrhea. GENITOURINARY: Denies dysuria or hematuria. SKIN: Denies rash or itching. MUSCULOSKELETAL: Denies back pain, joint pain, or myalgia. Reports generalized body aches NEUROLOGIC: Denies headache, numbness, or weakness. PSYCHIATRIC: Denies anxiety or depression. COUNT INCLUDES THE [facility] Past Medical History Medical History Asthma GERD (gastroesophageal reflux disease) HTN (hypertension) Surgical History Surgical History History of placement of ear tubes Hx of tonsillectomy Family History Family History Mother Breast cancer Grandparent Breast cancer History of kidney cancer Father Hypertension Cerebrovascular accident Sibling Lung cancer Social History Social History Smoking status: Never smoker Second hand tobacco smoke exposure: Yes Alcohol intake: never Substance use: never Living arrangements: with family Comments At time of signature, agree with nursing past medical, surgical, social and family history. There is no relevant family history pertinent to the presenting complaint Exam Narrative: The patient is a well-developed, well-nourished in no acute distress. SKIN: Skin is warm and dry without erythema, swelling or exudate. There is good turgor. No tenting. HEAD: Atraumatic. Normocephalic. No temporal or scalp tenderness. EYES: Moist and bright. Sclera and conjunctivae normal. No discharge. PERRLA. Extraocular motions intact. Gross visual acuity intact. EARS: Pinna is normal shape and contour. Clear external auditory canals. TM pearly swift with good cone of light, no erythema or suppuration. Bilateral cerumen noted no gross hearing deficit. NOSE: pink, moist mucosa with good air movement. Clear rhinorrhea without nasal flaring. Septum midline. Mouth: moist mucous membranes. THROAT; mild erythema noted to posterior oropharynx with moderate postnasal drainage. Without exudate or ulceration.. Uvula midline. Normal movement of soft palate. NECK: Supple and nontender with full range of motion w
== END 2022-11-12 18:55 | disposition home or self-care (01) ==
PROVIDERS: Emergency Provider Nurse Practitioner Family; PCP Family Medicine
DX: J06.9 Acute upper respiratory infection, unspecified (principal); J40 Bronchitis, not specified as acute or chronic; K21.9 Gastro-esophageal reflux disease without esophagitis; I10 Essential (primary) hypertension; J45.909 Unspecified asthma, uncomplicated
CPT/HCPCS: 71046; 99213; G0463

== ENCOUNTER 2022-11-21 10:23 | Emergency (ER) | payer OTHER, SELFPAY ==
[2022-11-21 10:26] VITALS: BP 156/65; PULSE 141; RESP 20; TEMP 37; O2SAT 100
--- NOTE | 2022-11-21 10:45 | ED.GENADULT ---
HPI - General Adult General Chief complaint: Anxiety Stated complaint: Vision Problem Source: patient and RN notes reviewed History of Present Illness HPI narrative: 27-year-old female presents to urgent care with complaints of anxiety. Patient states she feels like she has having a panic attack that started prior to arrival while she was at work. Patient reports associated fast heartbeat, tingling legs, tunnel vision, nausea, and dizziness. Patient reports history of panic attacks but states this 1 is worse than the others. Patient states she normally takes BuSpar p.r.n. but does not have any since she was at work when it started. Patient denies any shortness of breath, fevers, chills, vomiting. Some parts of this dictation were generated by voice recognition software and may contain typographical and/or grammatical inaccuracies. Related Data Home Medications Medication Instructions Recorded Confirmed norgestimate 0.25 mg-ethinyl See Rx Instructions .Route .COMPLEX 05/22/22 11/21/22 estradiol 35 mcg tablet (Naya) albuterol sulfate 90 mcg/actuation 1 puff inhalation DIRECTED 11/21/22 11/21/22 aerosol inhaler ergocalciferol (vitamin D2) 1,250 11/21/22 mcg (50,000 unit) capsule meloxicam 7.5 mg tablet 7.5 mg PO DIRECTED 11/21/22 11/21/22 Allergies Allergy/AdvReac Type Severity Reaction Status Date / Time aspirin Allergy Intermediate Nausea and Verified 11/21/22 10:28 Vomiting tramadol Allergy Intermediate Hives / Verified 11/21/22 10:28 Red Face amoxicillin Allergy Unknown n/v Verified 11/21/22 10:28 ketorolac Allergy Unknown HIVES Verified 11/21/22 10:28 ibuprofen Allergy Gastrointestinal Verified 11/21/22 10:28 Upset latex Allergy Rash Verified 11/21/22 10:28 codeine AdvReac Intermediate Nausea and Verified 11/21/22 10:28 Vomiting Review of Systems Review of Systems: CONSTITUTIONAL: Denies fever, chills, or sweats. EYES: Denies visual changes, redness, or discharge. ENT: Denies otalgia and sore throat CARDIOVASCULAR: Reports fast heartbeat RESPIRATORY: Denies cough or dyspnea. GASTROINTESTINAL: Denies abdominal pain. Reports nausea. GENITOURINARY: Denies dysuria or hematuria. SKIN: Denies rash or itching. MUSCULOSKELETAL: Denies back pain, joint pain, or myalgia. NEUROLOGIC: Tingling legs Psychiatric: Reports anxiety PMFSH Past Medical History Medical History Asthma GERD (gastroesophageal reflux disease) HTN (hypertension) Surgical History Surgical History History of placement of ear tubes Hx of tonsillectomy Family History Family History Mother Breast cancer Grandparent Breast cancer History of kidney cancer Father Hypertension Cerebrovascular accident Sibling Lung cancer Social History Social History Smoking status: Never smoker Second hand tobacco smoke exposure: Yes Alcohol intake: never Substance use: never Living arrangements: with family Course Course Level of Care: Express Care Visit Vital Signs Vital signs: Vital Signs Temperature 98.6 F 11/21/22 10:26 Pulse Rate 141 H 11/21/22 10:26 Respiratory Rate 11/21/22 10:26 Blood Pressure 156/65 H 11/21/22 10:26 Pulse Oximetry 100 11/21/22 10:26 Oxygen Delivery Room Air 11/21/22 10:26 Temperature 98.6 F 11/21/22 10:26 Pulse Rate 141 H 11/21/22 10:26 Respiratory Rate 20 11/21/22 10:26 Blood Pressure 156/65 H 11/21/22 10:26 Pulse Oximetry 100 11/21/22 10:26 Oxygen Delivery Room Air 11/21/22 10:26 Reviewed Medical Decision Making MDM Narrative Medical decision making narrative: Go to the emergency department any new or worsening symptoms. Call taking her BuSpar as directed. Patient's repeat heart ra
[2022-11-21] MEDS: diphenhydrAMINE HCl CAP 25 MG CAPSULE 50 MG PO (10:59)
[2022-11-21 11:59] VITALS: PULSE 120
== END 2022-11-21 11:59 | disposition home or self-care (01) ==
PROVIDERS: Emergency Provider Nurse Practitioner Family; PCP Family Medicine
DX: F41.9 Anxiety disorder, unspecified (principal); J45.909 Unspecified asthma, uncomplicated; K21.9 Gastro-esophageal reflux disease without esophagitis; I10 Essential (primary) hypertension
CPT/HCPCS: 99212; A9270; G0463

== ENCOUNTER 2022-12-12 14:39 | Emergency (ER) | payer OTHER, SELFPAY ==
[2022-12-12 14:52] VITALS: BP 118/69; PULSE 72; RESP 16; TEMP 36.3; O2SAT 100
--- NOTE | 2022-12-12 14:54 | ED.DENTAL ---
HPI - Dental/Oral General Chief complaint: Dental/Oral Stated complaint: swollen jaw Time Seen by Provider: 12/12/22 14:54 Mode of arrival: ambulatory Limitations: no limitations History of Present Illness HPI Narrative: 27-year-old female presents with concern for right lower dental pain radiating to her ear. She reports she has had problems with her teeth in this area in the past, she had an appointment to get a tooth extraction but the appointment was canceled by her dentist. She denies trouble swallowing or fever MD Complaint: tooth pain Related Data Home Medications Medication Instructions Recorded Confirmed ergocalciferol (vitamin D2) 1,250 11/21/22 mcg (50,000 unit) capsule meloxicam 7.5 mg tablet 7.5 mg PO DIRECTED 11/21/22 12/12/22 Allergies Allergy/AdvReac Type Severity Reaction Status Date / Time aspirin Allergy Intermediate Nausea and Verified 11/21/22 10:28 Vomiting tramadol Allergy Intermediate Hives / Verified 11/21/22 10:28 Red Face amoxicillin Allergy Unknown n/v Verified 11/21/22 10:28 ketorolac Allergy Unknown HIVES Verified 11/21/22 10:28 ibuprofen Allergy Gastrointestinal Verified 11/21/22 10:28 Upset latex Allergy Rash Verified 11/21/22 10:28 codeine AdvReac Intermediate Nausea and Verified 11/21/22 10:28 Vomiting Review of Systems Review of Systems: CONSTITUTIONAL: Denies malaise, chills, sweats, or fever. EYES: Denies visual changes ENT: Denies rhinorrhea, congestion, sinus pain, or sore throat. Reports right dental pain and right ear pain CARDIOVASCULAR: Denies chest pain, palpitations RESPIRATORY: Denies cough or dyspnea. SKIN: Denies rash or itching. MUSCULOSKELETAL: Denies myalgia. NEUROLOGIC: Denies numbness, weakness, or headache. All systems reviewed & are unremarkable except as noted in HPI and below PMFSH Past Medical History Medical History Asthma GERD (gastroesophageal reflux disease) HTN (hypertension) Surgical History Surgical History History of placement of ear tubes Hx of tonsillectomy Family History Family History Mother Breast cancer Grandparent Breast cancer History of kidney cancer Father Hypertension Cerebrovascular accident Sibling Lung cancer Social History Social History Smoking status: Never smoker Second hand tobacco smoke exposure: Yes Alcohol intake: never Substance use: never Living arrangements: with family Comments At time of signature, agree with nursing past medical, surgical, social and family history. There is no relevant family history pertinent to the presenting complaint Exam Narrative: GENERAL: Well-appearing, well-nourished, and in no acute distress. HEAD: Normocephalic, atraumatic. EYES: PERRLA, sclera clear ENT: Nares clear, turbinates pink, no rhinorrhea or epistaxis. Mucous membranes moist. TM pearly hodge with sharp light reflex bilaterally; no tragal tenderness. Oropharynx without erythema or lesions. Tonsils not enlarged and without exudate. Right lower caries, no visible or palpable abscesses NECK: Supple. No lymphadenopathy. CHEST: No respiratory distress. Speaks in full sentences. HEART: Regular rate and rhythm. SKIN: Warm, dry, no visible rash. NEURO: Alert and oriented x3. PSYCH: Normal mood and affect Course Course Emergency Course: Patient is aware of diagnosis, understands and agrees to treatment plan. Anticipatory guidance given. Patient agrees to follow-up as directed and is aware of reasons to seek care at the emergency department. Portions of this record may have been created with voice recognition software Level of Care: Express Care Visit Vital Signs Vital signs: Reviewed. MDM - Dental/Oral MDM Narrative Medical urszulaisi
== END 2022-12-12 15:05 | disposition home or self-care (01) ==
PROVIDERS: Emergency Provider Nurse Practitioner; PCP Family Medicine
DX: K08.89 Other specified disorders of teeth and supporting structures (principal); J45.909 Unspecified asthma, uncomplicated; K21.9 Gastro-esophageal reflux disease without esophagitis; I10 Essential (primary) hypertension
CPT/HCPCS: 99213; G0463

== ENCOUNTER 2022-12-30 12:48 | Emergency (ER) | payer OTHER, SELFPAY ==
[2022-12-30 13:10] VITALS: BP 116/64; PULSE 78; RESP 18; TEMP 36.9; O2SAT 99
--- NOTE | 2022-12-30 13:19 | ED.URI ---
HPI - URI/Sore Throat General Chief Complaint: Upper Respiratory Infection Stated Complaint: cold flu Source: patient and RN notes reviewed History of Present Illness HPI Narrative: 27 yo F presents to urgent care with son at side. Pt states she has been having congestion, facial pressure, N/V/D, fevers, and a migraine for the last 4 days. Pt states her migraine started today. Pt reports associated photophobia with her migraine. Pt reports bilateral ear pain. Pt denies any chest pain, SOB, or abdominal pain. Pt has been taking Tylenol at home with good relief of fevers. Related Data Home Medications Medication Instructions Recorded Confirmed ergocalciferol (vitamin D2) 1,250 See Rx Instructions .Route .COMPLEX 11/21/22 mcg (50,000 unit) capsule meloxicam 7.5 mg tablet 7.5 mg PO DIRECTED 11/21/22 12/30/22 Allergies Allergy/AdvReac Type Severity Reaction Status Date / Time aspirin Allergy Intermediate Nausea and Verified 12/30/22 13:14 Vomiting tramadol Allergy Intermediate Hives / Verified 12/30/22 13:14 Red Face amoxicillin Allergy Unknown n/v Verified 12/30/22 13:14 ketorolac Allergy Unknown HIVES Verified 12/30/22 13:14 ibuprofen Allergy Gastrointestinal Verified 12/30/22 13:14 Upset latex Allergy Rash Verified 12/30/22 13:14 codeine AdvReac Intermediate Nausea and Verified 12/30/22 13:14 Vomiting Review of Systems Review of Systems: Pertinent positives and pertinent negatives per HPI. PMFSH Past Medical History Medical History Asthma GERD (gastroesophageal reflux disease) HTN (hypertension) Surgical History Surgical History History of placement of ear tubes Hx of tonsillectomy Family History Family History Mother Breast cancer Grandparent Breast cancer History of kidney cancer Father Hypertension Cerebrovascular accident Sibling Lung cancer Social History Social History Smoking status: Never smoker Second hand tobacco smoke exposure: Yes Alcohol intake: never Substance use: never Living arrangements: with family Comments At the time of my signature, I reviewed and agree with the nursing past medical, surgical, social, and family history. There is no relevant family history pertinent to the patient complaint. Exam Narrative: GENERAL: This is a well-nourished, well-developed patient, in no apparent distress. HEAD: normocephalic, atraumatic. EYES: Sclera clear/white. Vision is grossly intact. EARS: External ears normal, auditory canals clear and without drainage, TMs normal without perforation. Hearing grossly intact. NOSE: External nose normal with no obvious nasal discharge, nares without redness, no rhinorrhea. THROAT: Mucous membranes moist, posterior pharynx clear. NECK: Neck supple, non-tender without lymphadenopathy, masses or thyromegaly. CARDIOVASCULAR: Regular rate and rhythm without murmurs, gallops, or rubs. RESPIRATORY: Clear to auscultation. Breath sounds equal bilaterally. No wheezes, rales, or rhonchi. SKIN: warm, intact with no suspicious lesions or rash, good texture and turgor. NEURO: awake, alert, and oriented to person, place and time. There were no obvious focal neurologic abnormalities. Course Course Level of Care: Express Care Visit Vital Signs Vital signs: Vital Signs Temperature 98.5 F 12/30/22 13:10 Pulse Rate 78 12/30/22 13:10 Respiratory Rate 18 12/30/22 13:10 Blood Pressure 116/64 12/30/22 13:10 Pulse Oximetry 99 12/30/22 13:10 Oxygen Delivery Room Air 12/30/22 13:10 Temperature 98.5 F 12/30/22 13:10 Pulse Rate 78 12/30/22 13:10 Respiratory Rate 18 12/30/22 13:10 Blood Pressure 116/64 12/30/22 13:10 Pulse Oximetry 99 12/30/22 13:10 Oxygen Delivery Ro
== END 2022-12-30 13:30 | disposition home or self-care (01) ==
PROVIDERS: Emergency Provider Nurse Practitioner Family; PCP Family Medicine
DX: K52.9 Noninfective gastroenteritis and colitis, unspecified (principal); J06.9 Acute upper respiratory infection, unspecified; J45.909 Unspecified asthma, uncomplicated; K21.9 Gastro-esophageal reflux disease without esophagitis; I10 Essential (primary) hypertension
CPT/HCPCS: 99213; G0463

== ENCOUNTER 2023-03-03 12:10 | Emergency (ER) | payer OTHER, SELFPAY ==
[2023-03-03 12:15] VITALS: BP 131/72; PULSE 88; RESP 16; TEMP 36.6; O2SAT 100
--- NOTE | 2023-03-03 12:33 | ED.EAR ---
HPI - Ear Problem General Chief complaint: Ear Stated complaint: Headache/Ear Pain Source: patient and RN notes reviewed Limitations: no limitations History of Present Illness HPI Narrative: Patient is a 27-year-old female who presents to the [facility] with complaints of left ear pain. States that she has had pain for a couple weeks. States that she noticed 2 weeks ago that her left ear was draining blood. She denies recent drainage. However, she reports recent fever of 101.2? F yesterday. States that the ear pain is causing her to have a headache. Patient states that she is prone to ear infections. States that she had tubes placed 4 years ago. Related Data Home Medications Medication Instructions Recorded Confirmed ergocalciferol (vitamin D2) 1,250 See Rx Instructions .Route .COMPLEX 11/21/22 mcg (50,000 unit) capsule meloxicam 7.5 mg tablet 7.5 mg PO DIRECTED 11/21/22 12/30/22 Allergies Allergy/AdvReac Type Severity Reaction Status Date / Time aspirin Allergy Intermediate Nausea and Verified 12/30/22 13:14 Vomiting tramadol Allergy Intermediate Hives / Verified 12/30/22 13:14 Red Face amoxicillin Allergy Unknown n/v Verified 12/30/22 13:14 ketorolac Allergy Unknown HIVES Verified 12/30/22 13:14 ibuprofen Allergy Gastrointestinal Verified 12/30/22 13:14 Upset latex Allergy Rash Verified 12/30/22 13:14 codeine AdvReac Intermediate Nausea and Verified 12/30/22 13:14 Vomiting Review of Systems Review of Systems: CONSTITUTIONAL: Denies fever, chills, or sweats. EYES: Denies visual changes, redness, or discharge. ENT: Denies sore throat. Reports left ear pain. CARDIOVASCULAR: Denies chest pain, palpitations, or edema. RESPIRATORY: Denies cough or dyspnea. GASTROINTESTINAL: Denies abdominal pain, nausea, vomiting, or diarrhea. GENITOURINARY: Denies dysuria or hematuria. SKIN: Denies rash or itching. MUSCULOSKELETAL: Denies back pain, joint pain, or myalgia. NEUROLOGIC: Reports headache but denies numbness or weakness. Pertinent positives per HPI. [facility] Past Medical History Medical History Asthma GERD (gastroesophageal reflux disease) HTN (hypertension) Surgical History Surgical History History of placement of ear tubes Hx of tonsillectomy Family History Family History Mother Breast cancer Grandparent Breast cancer History of kidney cancer Father Hypertension Cerebrovascular accident Sibling Lung cancer Social History Social History Smoking status: Never smoker Second hand tobacco smoke exposure: Yes Alcohol intake: never Substance use: never Living arrangements: with family Comments At the time of my signature, I reviewed and agree with the nursing past medical, surgical, social, and family history. There is no relevant family history pertinent to the patient complaint. Exam Narrative: GENERAL: This is a well-nourished, well-developed patient, in no apparent distress. HEAD: normocephalic, atraumatic. EYES: Sclera clear/white. Vision is grossly intact. EARS: External ears normal. Bilateral cerumen impaction. Hearing grossly intact. NOSE: External nose normal with no obvious nasal discharge, nares without redness, no rhinorrhea. THROAT: Mucous membranes moist, posterior pharynx clear. NECK: Neck supple, non-tender without lymphadenopathy, masses or thyromegaly. CARDIOVASCULAR: Regular rate and rhythm without murmurs, gallops, or rubs. RESPIRATORY: Clear to auscultation. Breath sounds equal bilaterally. No wheezes, rales, or rhonchi. GASTROINTESTINAL: Abdomen soft, non-tender, nondistended. Bowel sounds are active. No hepato-splenomegaly, or palpable masses. No guarding. SKIN: warm, intact with no suspicious lesions or emilia
== END 2023-03-03 13:06 | disposition home or self-care (01) ==
PROVIDERS: Emergency Provider Nurse Practitioner; PCP Family Medicine
DX: H66.92 Otitis media, unspecified, left ear (principal); H72.91 Unspecified perforation of tympanic membrane, right ear; H61.23 Impacted cerumen, bilateral; J45.909 Unspecified asthma, uncomplicated; K21.9 Gastro-esophageal reflux disease without esophagitis; I10 Essential (primary) hypertension
CPT/HCPCS: 69209; 99213; G0463

== ENCOUNTER 2023-06-08 11:27 | Emergency (ER) | payer OTHER, SELFPAY ==
[2023-06-08 11:33] VITALS: BP 125/72; PULSE 70; RESP 16; TEMP 36.5; O2SAT 100
[2023-06-08 11:38] VITALS: BP 125/72; PULSE 70; RESP 16; TEMP 36.5; O2SAT 100
--- NOTE | 2023-06-08 11:50 | ED.DENTAL ---
HPI - Dental/Oral General Chief complaint: Dental/Oral Stated complaint: Toothache Source: patient and RN notes reviewed History of Present Illness HPI Narrative: 28-year-old female presents to urgent care with complaints of right lower dental pain for the last 3 days or so. Patient states she has a chronic infection in this area has been antibiotics twice this year for it. Patient states every dental office she called the excepting adult patients. Patient denies any fevers, chills, trouble swallowing, or trouble breathing. Denies any chest pain or vomiting. Patient has had ibuprofen and Tylenol. Related Data Allergies Allergy/AdvReac Type Severity Reaction Status Date / Time aspirin Allergy Intermediate Nausea and Verified 12/30/22 13:14 Vomiting tramadol Allergy Intermediate Hives / Verified 12/30/22 13:14 Red Face amoxicillin Allergy Unknown n/v Verified 12/30/22 13:14 ketorolac Allergy Unknown HIVES Verified 12/30/22 13:14 ibuprofen Allergy Gastrointestinal Verified 12/30/22 13:14 Upset latex Allergy Rash Verified 12/30/22 13:14 codeine AdvReac Intermediate Nausea and Verified 12/30/22 13:14 Vomiting Review of Systems Review of Systems: CONSTITUTIONAL: Denies fever, chills, or sweats. EYES: Denies visual changes, redness, or discharge. ENT: Denies otalgia and sore throat. Right lower dental pain. CARDIOVASCULAR: Denies chest pain, palpitations, or edema. RESPIRATORY: Denies cough or dyspnea. GASTROINTESTINAL: Denies abdominal pain, nausea, vomiting, or diarrhea. GENITOURINARY: Denies dysuria or hematuria. SKIN: Denies rash or itching. MUSCULOSKELETAL: Denies back pain, joint pain, or myalgia. NEUROLOGIC: Denies headache, numbness, or weakness. Pertinent positives per HPI. PENDING SALE TO [facility] Past Medical History Medical History Asthma GERD (gastroesophageal reflux disease) HTN (hypertension) Surgical History Surgical History History of placement of ear tubes Hx of tonsillectomy Family History Family History Mother Breast cancer Grandparent Breast cancer History of kidney cancer Father Hypertension Cerebrovascular accident Sibling Lung cancer Social History Social History Smoking status: Never smoker Second hand tobacco smoke exposure: Yes Alcohol intake: never Substance use: never Living arrangements: with family Comments At the time of my signature, I reviewed and agree with the nursing past medical, surgical, social, and family history. There is no relevant family history pertinent to the patient complaint. Exam Narrative: GENERAL: This is a well-nourished, well-developed patient, in no apparent distress. HEAD: normocephalic, atraumatic. EYES: Sclera clear/white. Vision is grossly intact. EARS: External ears normal, auditory canals clear and without drainage. Hearing grossly intact. NOSE: External nose normal with no obvious nasal discharge, nares without redness, no rhinorrhea. THROAT: Mucous membranes moist, posterior pharynx clear. MOUTH: small swelling to right lower jaw. no abscess noted on gums. no broken teeth or dental caries noted. NECK: Neck supple, non-tender without lymphadenopathy, masses or thyromegaly. CARDIOVASCULAR: Regular rate RESPIRATORY: No respiratory stress SKIN: warm, intact with no suspicious lesions or rash, good texture and turgor. NEURO: awake, alert, and oriented to person, place and time. There were no obvious focal neurologic abnormalities. Course Course Level of Care: Express Care Visit Vital Signs Vital signs: Vital Signs Temperature 97.7 F 06/08/23 11:33 Pulse Rate 70 06/08/23 11:33 Respiratory Rate 16 06/08/23 11:33 Blood Pressure 125/72 06/08/23 11:33 Pulse Oximetry 100
== END 2023-06-08 11:56 | disposition home or self-care (01) ==
PROVIDERS: Emergency Provider Nurse Practitioner Family; PCP Family Medicine
DX: K04.7 Periapical abscess without sinus (principal); J45.909 Unspecified asthma, uncomplicated; K21.9 Gastro-esophageal reflux disease without esophagitis; I10 Essential (primary) hypertension
CPT/HCPCS: 99213; G0463

== ENCOUNTER 2023-08-02 18:24 | Emergency (ER) | payer OTHER, SELFPAY ==
[2023-08-02 18:29] VITALS: BP 126/66; PULSE 80; RESP 18; TEMP 36.4; O2SAT 99
--- NOTE | 2023-08-02 18:56 | ED.URI ---
HPI - URI/Sore Throat General Chief Complaint: Upper Respiratory Infection Stated Complaint: Sore Throat Time Seen by Provider: 08/02/23 18:56 Source: patient and RN notes reviewed Mode of arrival: ambulatory Limitations: no limitations History of Present Illness HPI Narrative: Patient presents today with a sore throat since last night that has worsened today, with fatigue and bilateral ear pain. Denies cough, fever, rhinorrhea. Pain increases with swallowing. Currently rates her pain 7/10 and has tried Tylenol and ibuprofen without much relief. Related Data Allergies Allergy/AdvReac Type Severity Reaction Status Date / Time aspirin Allergy Intermediate Nausea and Verified 08/02/23 18:41 Vomiting tramadol Allergy Intermediate Hives / Verified 08/02/23 18:41 Red Face amoxicillin Allergy Unknown n/v Verified 08/02/23 18:41 ketorolac Allergy Unknown HIVES Verified 08/02/23 18:41 ibuprofen Allergy Gastrointestinal Verified 12/30/22 13:14 Upset latex Allergy Rash Verified 08/02/23 18:41 Review of Systems Review of Systems: CONSTITUTIONAL: Denies body aches, fever, chills, or sweats.+ fatigue EYES: Denies visual changes, redness, or discharge. ENT: Denies rhinorrhea, congestion.+ sore throat, bilateral ear pain CARDIOVASCULAR: Denies chest pain, palpitations, or edema. RESPIRATORY: Denies cough or dyspnea. GASTROINTESTINAL: Denies abdominal pain, nausea, vomiting, or diarrhea. GENITOURINARY: Denies dysuria or hematuria. SKIN: Denies rash, itching, or wounds. MUSCULOSKELETAL: Denies back pain, joint pain, or myalgia. NEUROLOGIC: Denies headache, numbness, tingling, or weakness. PSYCH: Denies depression or anxiety. [facility] Past Medical History Medical History Asthma GERD (gastroesophageal reflux disease) HTN (hypertension) Surgical History Surgical History History of placement of ear tubes Hx of tonsillectomy Family History Family History Mother Breast cancer Grandparent Breast cancer History of kidney cancer Father Hypertension Cerebrovascular accident Sibling Lung cancer Social History Social History Smoking status: Never smoker Second hand tobacco smoke exposure: Yes Alcohol intake: never Substance use: never Living arrangements: with family Comments At time of signature, I have reviewed and agree with nursing past medical, surgical, social and family history unless otherwise noted. Please see nursing chart for further information. There is no relevant family history pertinent to the presenting complaint Exam Narrative: GENERAL: Mildly ill-appearing, well-nourished, and in no acute distress. HEAD: Normocephalic, atraumatic. EYES: EOMI. No redness or drainage. Conjunctivae normal. ENT: Mucous membranes pink and moist. Nares clear. No rhinorrhea. TMs normal bilaterally. Throat normal. Uvula midline. NECK: Normal AROM. Supple. No lymphadenopathy. CHEST: No respiratory distress. Clear to auscultation. HEART: Regular rate and rhythm. No murmur appreciated. EXTREMITIES: Normal range of motion. No edema. SKIN: Warm, dry, no rash. Capillary refill normal. Normal skin turgor. NEURO: No focal deficits. Alert and oriented x3. Gait steady. PSYCH: Normal affect. No signs of depression or anxiety. Course Course Level of Care: Express Care Visit Vital Signs Vital signs: Vital Signs Temperature 97.6 F 08/02/23 18:29 Pulse Rate 80 08/02/23 18:29 Respiratory Rate 18 08/02/23 18:29 Blood Pressure 126/66 08/02/23 18:29 Pulse Oximetry 99 08/02/23 18:29 Oxygen Delivery Room Air 08/02/23 18:29 Temperature 97.6 F 08/02/23 18:29 Pulse Rate 80 08/02/23 18:29 Respiratory Rate 18 08/02/23 18:29
== END 2023-08-02 19:23 | disposition home or self-care (01) ==
PROVIDERS: Emergency Provider Nurse Practitioner; PCP Family Medicine
DX: J02.9 Acute pharyngitis, unspecified (principal); Z20.822 Contact with and (suspected) exposure to COVID-19; J45.909 Unspecified asthma, uncomplicated; K21.9 Gastro-esophageal reflux disease without esophagitis; I10 Essential (primary) hypertension
CPT/HCPCS: 87081; 87426; 87804; 87880; 99213; C9803; G0463

== ENCOUNTER 2023-08-25 16:49 | Emergency (ER) | payer OTHER, SELFPAY ==
[2023-08-25 16:55] VITALS: BP 139/78; PULSE 86; RESP 16; TEMP 36.9; O2SAT 98
--- NOTE | 2023-08-25 17:17 | ED.URI ---
HPI - URI/Sore Throat General Chief Complaint: Upper Respiratory Infection Stated Complaint: chest congestion/migraine Time Seen by Provider: 08/25/23 17:17 Source: patient, family, RN notes reviewed and old records reviewed Mode of arrival: ambulatory Limitations: no limitations History of Present Illness HPI Narrative: 28 year old female who presents to [facility] care with complaints of 8 day history of headaches which does decrease for 35 -40 minutes with use of Tylenol Or Ibuprofen and has also taken Imitrex without relief.Patient reports that she did take home COVID test which was negative. Patient reports that she has had some chest congestion, cough and chest tightness,little shortness of breath, some sinus drainage, denies any sore throat or any fevers. Patient reports that she does have inhaler at home that she has used. MD elicited complaint: cough, rhinorrhea, nasal congestion and other (chest congestion.) Pertinent past history: seasonal allergies Onset (ago): day(s) (8 days headache, 2 days cough and congestion) Pain scale (0-10): 7 Able to tolerate fluids by mouth: Yes Associated symptoms: headache, rhinorrhea, nasal congestion, cough and shortness of breath Treatments prior to arrival: acetaminophen, ibuprofen and other (Imitrex, used inhaler) Related Data Allergies Allergy/AdvReac Type Severity Reaction Status Date / Time aspirin Allergy Intermediate Nausea and Verified 08/25/23 17:41 Vomiting tramadol Allergy Intermediate Hives / Verified 08/25/23 17:41 Red Face amoxicillin Allergy Unknown n/v Verified 08/25/23 17:41 ketorolac Allergy Unknown HIVES Verified 08/25/23 17:41 ibuprofen Allergy Gastrointestinal Verified 08/25/23 17:41 Upset latex Allergy Rash Verified 08/25/23 17:41 Review of Systems Review of Systems: CONSTITUTIONAL: Denies malaise, chills, sweats, or fever. EYES: Denies visual changes, redness, or discharge. ENT: Reports rhinorrhea, congestion, sinus pain, no otalgia and no sore throat. CARDIOVASCULAR: Denies chest pain, palpitations, or edema. RESPIRATORY: Reports cough.? Denies acute dyspnea, reports some SOB with exertion GASTROINTESTINAL: Denies abdominal pain, nausea, vomiting, diarrhea SKIN: Denies rash or itching. MUSCULOSKELETAL: Denies myalgia. NEUROLOGIC: reports frontal and temporal headache. All systems reviewed & are unremarkable except as noted in HPI and below PMFSH Past Medical History Medical History Asthma GERD (gastroesophageal reflux disease) HTN (hypertension) Hx of migraines Surgical History Surgical History History of placement of ear tubes Hx of tonsillectomy Family History Family History Mother Breast cancer Grandparent Breast cancer History of kidney cancer Father Hypertension Cerebrovascular accident Sibling Lung cancer Social History Social History Smoking status: Never smoker Second hand tobacco smoke exposure: Yes Alcohol intake: never Substance use: never Living arrangements: with family Comments At time of signature, agree with nursing past medical, surgical, social and family history. There is no relevant family history pertinent to the presenting complaint Exam Narrative: GENERAL: Well-appearing, well-nourished, and in no acute distress. HEAD: Normocephalic EYES: PERRLA, conjunctivae clear ENT: Nares clear, turbinates edematous and erythematous, clear discharge. Mucous membranes moist. TM pearly hodge with dull light reflex bilaterally; no tragal tenderness. Oropharynx erythematous without lesions. Tonsils not present, throat without exudate, no drooling, no hoarseness, no trismus, uvula midline.post nasal drainage noted, headache frontal and temporal NECK: Supple. No ly
== END 2023-08-25 17:50 | disposition home or self-care (01) ==
PROVIDERS: Emergency Provider Registered Nurse; PCP Family Medicine
DX: J06.9 Acute upper respiratory infection, unspecified (principal); R05.9 Cough, unspecified; G43.909 Migraine, unspecified, not intractable, without status migrainosus; J45.909 Unspecified asthma, uncomplicated; K21.9 Gastro-esophageal reflux disease without esophagitis; I10 Essential (primary) hypertension
CPT/HCPCS: 99213; G0463

== ENCOUNTER 2023-09-08 10:10 | Emergency (ER) | payer OTHER, SELFPAY ==
--- NOTE | 2023-09-08 10:22 | ED.URI ---
HPI - URI/Sore Throat General Chief Complaint: Upper Respiratory Infection Stated Complaint: Headache/Vomiting/Vision Problem Time Seen by Provider: 09/08/23 10:22 Source: patient, RN notes reviewed and old records reviewed Mode of arrival: ambulatory Limitations: no limitations History of Present Illness HPI Narrative: 28 year old female who presents to [facility] care with complaints of vomiting 3 times this morning, feeling hot and cold, dizzy, and her vision gets spotty, and body aches. Patient reports that she started getting URI symptoms last night and she did take home COVID test which was negative. Patient reports that her employer made her leave work and come get checked out states she needs work note. Patient states that other family members have been ill also with URI symptoms. MD elicited complaint: rhinorrhea, nasal congestion and other (nausea and vomiting and dizziness) Pertinent past history: asthma and other (migraines) Onset (ago): day(s) (1) Pain scale (0-10): 8 Able to tolerate fluids by mouth: Yes Treatments prior to arrival: none Related Data Allergies Allergy/AdvReac Type Severity Reaction Status Date / Time aspirin Allergy Intermediate Nausea and Verified 09/08/23 10:26 Vomiting tramadol Allergy Intermediate Hives / Verified 09/08/23 10:26 Red Face amoxicillin Allergy Unknown n/v Verified 09/08/23 10:26 ketorolac Allergy Unknown HIVES Verified 09/08/23 10:26 ibuprofen Allergy Gastrointestinal Verified 09/08/23 10:26 Upset latex Allergy Rash Verified 09/08/23 10:26 Review of Systems Review of Systems: CONSTITUTIONAL: Denies fever, chills, or sweats. EYES: Denies visual changes, redness, or discharge.vision got spotty when she was throwing up ENT:Reports rhinorrhea, congestion, no sore throat, or otalgia. CARDIOVASCULAR: Denies chest pain, palpitations, or edema. RESPIRATORY: Denies cough or dyspnea. GASTROINTESTINAL: Denies abdominal pain, positive for nausea, vomiting, no diarrhea. GENITOURINARY: Denies dysuria or hematuria. SKIN: Denies rash or itching. MUSCULOSKELETAL: Denies back pain, joint pain, reports body aches NEUROLOGIC: Denies headache, numbness, or weakness. PSYCHIATRIC: Denies anxiety or depression. All systems reviewed & are unremarkable except as noted in HPI and below PMFSH Past Medical History Medical History Asthma GERD (gastroesophageal reflux disease) HTN (hypertension) Hx of migraines Surgical History Surgical History History of placement of ear tubes Hx of tonsillectomy Family History Family History Mother Breast cancer Grandparent Breast cancer History of kidney cancer Father Hypertension Cerebrovascular accident Sibling Lung cancer Social History Social History Smoking status: Never smoker Second hand tobacco smoke exposure: Yes Alcohol intake: never Substance use: never Living arrangements: with family Comments At time of signature, agree with nursing past medical, surgical, social and family history. There is no relevant family history pertinent to the presenting complaint Exam Narrative: GENERAL: Well-appearing, well-nourished, and in no acute distress. HEAD: Normocephalic, atraumatic. EYES: PERRLA and EOMI. ENT: Nares clear, clear rhinorrhea no epistaxis. Mucous membranes moist.TM's normal, throat pink,tonsils not present NECK: Supple.no lymphadenopathy CHEST: Clear to auscultation. No respiratory distress., SAO2 98% on room air HEART: Regular rate and rhythm. No murmur heard. Normal peripheral pulses. ABDOMEN: Soft, nontender, nondistended, normal active bowel sounds.nausea and vomiting, no diarrhea EXTREMITIES: Normal range of motion. No edema. SKIN: Warm, dry, no rash. NEURO: No focal deficits. Alert a
[2023-09-08 10:28] VITALS: BP 131/69; PULSE 87; RESP 16; TEMP 36.3; O2SAT 98
== END 2023-09-08 11:09 | disposition home or self-care (01) ==
PROVIDERS: Emergency Provider Registered Nurse; PCP Family Medicine
DX: R11.2 Nausea with vomiting, unspecified (principal); I10 Essential (primary) hypertension; Z20.822 Contact with and (suspected) exposure to COVID-19
CPT/HCPCS: 87426; 87804; 99213; C9803; G0463

== ENCOUNTER 2023-09-17 18:37 | Emergency (ER) | payer OTHER, SELFPAY ==
[2023-09-17 18:44] VITALS: BP 125/64; PULSE 75; RESP 20; TEMP 36.9; O2SAT 98
--- NOTE | 2023-09-17 18:52 | ED.EAR ---
HPI - Ear Problem General Chief complaint: Ear Stated complaint: rt ear prob History of Present Illness HPI Narrative: Patient presents with right ear pain. Patient states she noted some serous drainage from her ear this morning. Denies any swimming denies any hearing loss. Related Data Allergies Allergy/AdvReac Type Severity Reaction Status Date / Time aspirin Allergy Intermediate Nausea and Verified 09/08/23 10:26 Vomiting tramadol Allergy Intermediate Hives / Verified 09/08/23 10:26 Red Face amoxicillin Allergy Unknown n/v Verified 09/08/23 10:26 ketorolac Allergy Unknown HIVES Verified 09/08/23 10:26 ibuprofen Allergy Gastrointestinal Verified 09/08/23 10:26 Upset latex Allergy Rash Verified 09/08/23 10:26 Review of Systems Review of Systems: CONSTITUTIONAL: Denies fever, chills, or sweats. EYES: Denies visual changes, redness, or discharge. ENT: Denies rhinorrhea, congestion, sore throat, or otalgia. CARDIOVASCULAR: Denies chest pain, palpitations, or edema. RESPIRATORY: Denies cough or dyspnea. GASTROINTESTINAL: Denies abdominal pain, nausea, vomiting, or diarrhea. GENITOURINARY: Denies dysuria or hematuria. SKIN: Denies rash or itching. MUSCULOSKELETAL: Denies back pain, joint pain, or myalgia. NEUROLOGIC: Denies headache, numbness, or weakness. PSYCHIATRIC: Denies anxiety or depression. PMFSH Past Medical History Medical History Asthma GERD (gastroesophageal reflux disease) HTN (hypertension) Hx of migraines Surgical History Surgical History History of placement of ear tubes Hx of tonsillectomy Family History Family History Mother Breast cancer Grandparent Breast cancer History of kidney cancer Father Hypertension Cerebrovascular accident Sibling Lung cancer Social History Social History Smoking status: Never smoker Second hand tobacco smoke exposure: Yes Alcohol intake: never Substance use: never Living arrangements: with family Exam Narrative: The patient is a well-developed, well-nourished in no acute distress. SKIN: Skin is warm and dry without erythema, swelling or exudate. There is good turgor. No tenting. HEAD: Atraumatic. Normocephalic. No temporal or scalp tenderness. EYES: Moist and bright. Sclera and conjunctivae normal. No discharge. PERRLA. Extraocular motions intact. Gross visual acuity intact. EARS: Pinna is normal shape and contour. Clear external auditory canals. TM pearly swift with good cone of light, no erythema or suppuration. Bilateral cerumen noted no gross hearing deficit. NOSE: pink, moist mucosa with good air movement. Clear rhinorrhea without nasal flaring. Septum midline. Mouth: moist mucous membranes. THROAT; mild erythema noted to posterior oropharynx with moderate postnasal drainage. Without exudate or ulceration.. Uvula midline. Normal movement of soft palate. NECK: Supple and nontender with full range of motion without discomfort. No meningeal signs. LUNGS: Equal and bilateral breath sounds without wheezes, rales or rhonchi. CHEST: The chest wall is without retractions or use of accessory muscles. HEART: Has a regular rate and rhythm without murmur, gallops, click or rub. ABDOMEN: Soft, nontender with positive active bowel sounds. No rebound tenderness. EXTREMITIES: Without cyanosis, clubbing or edema. Equal 2+ distal pulses and 2 second capillary refill noted. NEUROLOGIC: alert, active, . The patient moves all extremities with normal muscle strength. Normal muscle tone is noted. Normal coordination is noted. NO focal neurological findings noted. HENMT: Ears: Abnormal EAC present erythema on the right and EAC tenderness Course Course Level of Care: Express Care Visit Discharge Plan Discharge Clinica
== END 2023-09-17 19:00 | disposition home or self-care (01) ==
PROVIDERS: Emergency Provider Nurse Practitioner Family; PCP Family Medicine
DX: H60.91 Unspecified otitis externa, right ear (principal); J45.909 Unspecified asthma, uncomplicated; K21.9 Gastro-esophageal reflux disease without esophagitis; I10 Essential (primary) hypertension
CPT/HCPCS: 99213; G0463

== ENCOUNTER 2023-09-28 14:33 | Emergency (ER) | payer OTHER, SELFPAY ==
[2023-09-28 14:37] VITALS: BP 126/82; PULSE 83; RESP 20; TEMP 36.6; O2SAT 100
--- NOTE | 2023-09-28 14:40 | ED.GENADULT ---
HPI - General Adult General Chief complaint: Allergic Reaction Stated complaint: face and throat swollen/itchy Time Seen by Provider: 09/28/23 14:40 Source: patient Mode of arrival: ambulatory Limitations: no limitations History of Present Illness HPI narrative: Patient is a 28-year-old female that presents with face itching that is spreading to the rest of her body. Patient states 4 months ago she had a raspberry donut and had sensation of tongue swelling and tingling. Patient had raspberry drink today and is now having the itching and swelling feeling to body. Patient denies that her throat is closing, tongue swelling or difficulty breathing. Related Data Home Medications Medication Instructions Recorded Confirmed ondansetron 4 mg disintegrating mg 09/28/23 tablet Allergies Allergy/AdvReac Type Severity Reaction Status Date / Time aspirin Allergy Intermediate Nausea and Verified 09/28/23 14:42 Vomiting tramadol Allergy Intermediate Hives / Verified 09/28/23 14:42 Red Face amoxicillin Allergy Unknown n/v Verified 09/28/23 14:42 ketorolac Allergy Unknown HIVES Verified 09/28/23 14:42 ibuprofen Allergy Gastrointestinal Verified 09/28/23 14:42 Upset latex Allergy Rash Verified 09/28/23 14:42 raspberry Allergy Swelling Verified 09/28/23 14:56 of Lip/Tongue/Throat Review of Systems Review of Systems: All systems reviewed & are unremarkable except as noted in HPI and below Constitutional: Constitutional: Denies body ache(s), Denies chills, Denies fatigue, Denies fever(s), Denies headache(s), Denies malaise and Denies weakness Eyes: Eyes: Denies blurry vision, Denies irritation and Denies loss of vision ENT: Denies otalgia, Denies headache(s), Denies nasal discharge, Denies sinus pain and Denies sore throat Cardiovascular: Cardiovascular: Denies chest pain, Denies irregular heart rhythm and Denies dyspnea Respiratory: Respiratory: Denies dyspnea Gastrointestinal: Gastrointestinal: Denies abdominal pain, Denies melena, Denies hematochezia, Denies diarrhea, Denies nausea and Denies vomiting Musculoskeletal: Musculoskeletal: Denies back pain, Denies myalgias and Denies arthralgias Integumentary/Breasts: Skin/Breast: Reports pruritus and Denies rash Neurologic: Denies headache(s), Denies loss of vision and Denies weakness Psychiatric: Psychiatric: Reports no additional psychiatric complaints Endocrine: Endocrine: Denies fatigue PMFSH Past Medical History Medical History Asthma GERD (gastroesophageal reflux disease) HTN (hypertension) Hx of migraines Surgical History Surgical History History of placement of ear tubes Hx of tonsillectomy Family History Family History Mother Breast cancer Grandparent Breast cancer History of kidney cancer Father Hypertension Cerebrovascular accident Sibling Lung cancer Social History Social History Smoking status: Never smoker Second hand tobacco smoke exposure: Yes Alcohol intake: never Substance use: never Living arrangements: with family Comments At time of signature, agree with nursing past medical, surgical, social and family history. There is no relevant family history pertinent to the presenting complaint. Exam Const: General: cooperative, healthy appearing, comfortable, no acute distress and well nourished Nutritional Appearance: well nourished Orientation/consciousness: patient oriented x3 Limitations: no limitations HENMT: Head: normal to inspection, normocephalic and atraumatic Ears: hearing grossly normal bilaterally and external ears normal Face/Nose/Sinus: Normal external nose present, normal facial exam and face symmetric Face and sinus: normal facial exam and face symmetric M
[2023-09-28 14:42] VITALS: BP 126/82; PULSE 83; RESP 20; TEMP 36.6; O2SAT 100
== END 2023-09-28 16:14 | disposition home or self-care (01) ==
PROVIDERS: Emergency Provider Nurse Practitioner Family; PCP Family Medicine
DX: T78.40XA Allergy, unspecified, initial encounter (principal); I10 Essential (primary) hypertension; Z79.899 Other long term (current) drug therapy
CPT/HCPCS: 87081; 87880; 96372; 99213; G0463; J1100

== ENCOUNTER 2023-10-24 08:49 | Emergency (ER) | payer OTHER, SELFPAY ==
[2023-10-24 09:02] VITALS: BP 113/66; PULSE 67; RESP 20; TEMP 36.6; O2SAT 100
--- NOTE | 2023-10-24 09:52 | ED.URI ---
HPI - URI/Sore Throat General Chief Complaint: Upper Respiratory Infection Stated Complaint: throat Time Seen by Provider: 10/24/23 09:30 Source: patient, RN notes reviewed and old records reviewed Mode of arrival: ambulatory Limitations: no limitations History of Present Illness HPI Narrative: 28-year-old female who presents to [facility] with complaints of sore throat today and has had ear pain for 1.5 weeks. Patient reports that she has had some nasal congestion and drainage only for the past day. Patient reports history of past ear infections and ear tubes.Patient reports that she has taken Tylenol for her discomfort.Patient reports 100F temperature today and runny nose. MD elicited complaint: sore throat and other (ear pain bilaterally) Pertinent past history: tympanostony tubes and asthma Onset (ago): day(s) (today for sore throat and 1.5 weeks ear pain) Pain scale (0-10): 6 Able to tolerate fluids by mouth: Yes Treatments prior to arrival: acetaminophen Related Data Home Medications Medication Instructions Recorded Confirmed etonogestrel 0.12 mg-ethinyl 1 vag ring vaginal DAILY 10/24/23 10/24/23 estradiol 0.015 mg/24 hr vaginal ring ([place]) fluticasone propionate 220 2 puff inhalation BID 10/24/23 10/24/23 mcg/actuation HFA aerosol inhaler Allergies Allergy/AdvReac Type Severity Reaction Status Date / Time raspberry Allergy Severe Swelling Verified 10/24/23 09:17 of Lip/Tongue/Throat aspirin Allergy Intermediate Nausea and Verified 10/24/23 09:17 Vomiting ibuprofen Allergy Intermediate Gastrointestinal Verified 10/24/23 09:17 Upset latex Allergy Intermediate Rash Verified 10/24/23 09:17 tramadol Allergy Intermediate Hives / Verified 10/24/23 09:17 Red Face amoxicillin Allergy Unknown n/v Verified 10/24/23 09:17 ketorolac Allergy Unknown HIVES Verified 10/24/23 09:17 Review of Systems Review of Systems: CONSTITUTIONAL: Reports malaise, chills, sweats, low grade fever. EYES: Denies visual changes, redness, or discharge. ENT: Reports rhinorrhea, congestion,no sinus pain, positive for otalgia and positive sore throat. CARDIOVASCULAR: Denies chest pain, palpitations, or edema. RESPIRATORY: Reports no cough.? Denies dyspnea. GASTROINTESTINAL: Denies abdominal pain, nausea, vomiting, diarrhea SKIN: Denies rash or itching. MUSCULOSKELETAL: Denies myalgia. NEUROLOGIC: Denies headache. All systems reviewed & are unremarkable except as noted in HPI and below PMFSH Past Medical History Medical History Asthma GERD (gastroesophageal reflux disease) HTN (hypertension) Hx of migraines Surgical History Surgical History History of placement of ear tubes Hx of tonsillectomy Family History Family History Mother Breast cancer Grandparent Breast cancer History of kidney cancer Father Hypertension Cerebrovascular accident Sibling Lung cancer Social History Social History Smoking status: Never smoker Second hand tobacco smoke exposure: Yes Alcohol intake: never Substance use: never Living arrangements: with family Comments At time of signature, agree with nursing past medical, surgical, social and family history. There is no relevant family history pertinent to the presenting complaint Exam Narrative: GENERAL: Well-appearing, well-nourished, and in no acute distress. HEAD: Normocephalic EYES: PERRLA, conjunctivae clear ENT: Nares clear, turbinates edematous and erythematous, clear discharge. Mucous membranes moist.Right TM red, Left TM pearly hodge with dull light reflex; no tragal tenderness. Oropharynx erythematous without lesions. Tonsils not present and throat without exudate, no drooling, no hoarseness, no tri
== END 2023-10-24 10:05 | disposition home or self-care (01) ==
PROVIDERS: Emergency Provider Registered Nurse; PCP Family Medicine
DX: H66.91 Otitis media, unspecified, right ear (principal); J02.9 Acute pharyngitis, unspecified; J45.909 Unspecified asthma, uncomplicated; K21.9 Gastro-esophageal reflux disease without esophagitis; I10 Essential (primary) hypertension
CPT/HCPCS: 87081; 87880; 99213; G0463

== ENCOUNTER 2023-10-30 16:12 | Emergency (ER) | payer OTHER, SELFPAY ==
[2023-10-30 16:18] VITALS: BP 146/73; PULSE 80; RESP 20; TEMP 37; O2SAT 100
--- NOTE | 2023-10-30 16:35 | ED.URI ---
HPI - URI/Sore Throat General Chief Complaint: Upper Respiratory Infection Stated Complaint: Sore throat, loss of smell, Headache History of Present Illness HPI Narrative: Patient presents with nasal congestion cough and exposure to COVID-19. No shortness of breath no chest pain not taking anything [id number] for symptoms. Related Data Home Medications Medication Instructions Recorded Confirmed etonogestrel 0.12 mg-ethinyl 1 vag ring vaginal DAILY 10/24/23 10/30/23 estradiol 0.015 mg/24 hr vaginal ring ([place]) fluticasone propionate 220 2 puff inhalation BID 10/24/23 10/30/23 mcg/actuation HFA aerosol inhaler Allergies Allergy/AdvReac Type Severity Reaction Status Date / Time raspberry Allergy Severe Swelling Verified 10/24/23 09:17 of Lip/Tongue/Throat aspirin Allergy Intermediate Nausea and Verified 10/24/23 09:17 Vomiting ibuprofen Allergy Intermediate Gastrointestinal Verified 10/24/23 09:17 Upset latex Allergy Intermediate Rash Verified 10/24/23 09:17 tramadol Allergy Intermediate Hives / Verified 10/24/23 09:17 Red Face amoxicillin Allergy Unknown n/v Verified 10/24/23 09:17 ketorolac Allergy Unknown HIVES Verified 10/24/23 09:17 Review of Systems Review of Systems: CONSTITUTIONAL: Denies chills, or sweats. Reports fever and generalized body aches EYES: Denies visual changes, redness, or discharge. ENT: Denies otalgia. Reports nasal congestion runny nose and sore throat CARDIOVASCULAR: Denies chest pain, palpitations, or edema. RESPIRATORY: Denies dyspnea. Reports occasional cough GASTROINTESTINAL: Denies abdominal pain, nausea, vomiting, or diarrhea. GENITOURINARY: Denies dysuria or hematuria. SKIN: Denies rash or itching. MUSCULOSKELETAL: Denies back pain, joint pain, or myalgia. Reports generalized body aches NEUROLOGIC: Denies headache, numbness, or weakness. PSYCHIATRIC: Denies anxiety or depression. [facility] Past Medical History Medical History Asthma GERD (gastroesophageal reflux disease) HTN (hypertension) Hx of migraines Surgical History Surgical History History of placement of ear tubes Hx of tonsillectomy Family History Family History Mother Breast cancer Grandparent Breast cancer History of kidney cancer Father Hypertension Cerebrovascular accident Sibling Lung cancer Social History Social History Smoking status: Never smoker Second hand tobacco smoke exposure: Yes Alcohol intake: never Substance use: never Living arrangements: with family Comments At time of signature, agree with nursing past medical, surgical, social and family history. There is no relevant family history pertinent to the presenting complaint Exam Narrative: The patient is a well-developed, well-nourished in no acute distress. SKIN: Skin is warm and dry without erythema, swelling or exudate. There is good turgor. No tenting. HEAD: Atraumatic. Normocephalic. No temporal or scalp tenderness. EYES: Moist and bright. Sclera and conjunctivae normal. No discharge. PERRLA. Extraocular motions intact. Gross visual acuity intact. EARS: Pinna is normal shape and contour. Clear external auditory canals. TM pearly swift with good cone of light, no erythema or suppuration. Bilateral cerumen noted no gross hearing deficit. NOSE: pink, moist mucosa with good air movement. Clear rhinorrhea without nasal flaring. Septum midline. Mouth: moist mucous membranes. THROAT; mild erythema noted to posterior oropharynx with moderate postnasal drainage. Without exudate or ulceration.. Uvula midline. Normal movement of soft palate. NECK: Supple and nontender with full range of motion without discomfort. No meningeal signs. LUNGS: Equal and bilateral b
== END 2023-10-30 16:57 | disposition home or self-care (01) ==
PROVIDERS: Emergency Provider Nurse Practitioner Family; PCP Family Medicine
DX: B34.9 Viral infection, unspecified (principal); Z20.822 Contact with and (suspected) exposure to COVID-19; J45.909 Unspecified asthma, uncomplicated; K21.9 Gastro-esophageal reflux disease without esophagitis; I10 Essential (primary) hypertension
CPT/HCPCS: 87081; 87426; 87804; 87880; 99213; G0463

== ENCOUNTER 2023-11-13 08:34 | Emergency (ER) | payer OTHER, SELFPAY ==
[2023-11-13 08:38] VITALS: BP 141/64; PULSE 82; RESP 20; TEMP 36.7; O2SAT 99
--- NOTE | 2023-11-13 09:02 | ED.DENTAL ---
HPI - Dental/Oral General Chief complaint: Dental/Oral Stated complaint: Toothache Time Seen by Provider: 11/13/23 09:04 Source: patient, RN notes reviewed and old records reviewed Mode of arrival: ambulatory Limitations: no limitations History of Present Illness HPI Narrative: 28 Year old female who has complaints of dental pain to the lower right molar which is cracked with tenderness around the gum. Patient reports that she has had problems with this tooth for over 2 years and doesn't have a dentist. Patient reports that she went to dental school and they wanted 600 dollars to fix tooth in the past wanted to just get tooth pulled. Patient reports that she has some tenderness to the side of her face also on right side no acute swelling present. MD Complaint: tooth pain Location: Tooth # (29) Onset (ago): day(s) (2) Duration: worsening Treatment prior to arrival: oral analgesic Related Data Home Medications Medication Instructions Recorded Confirmed etonogestrel 0.12 mg-ethinyl 1 vag ring vaginal DAILY 10/24/23 10/30/23 estradiol 0.015 mg/24 hr vaginal ring ([place]) Allergies Allergy/AdvReac Type Severity Reaction Status Date / Time raspberry Allergy Severe Swelling Verified 10/24/23 09:17 of Lip/Tongue/Throat aspirin Allergy Intermediate Nausea and Verified 10/24/23 09:17 Vomiting ibuprofen Allergy Intermediate Gastrointestinal Verified 10/24/23 09:17 Upset latex Allergy Intermediate Rash Verified 10/24/23 09:17 tramadol Allergy Intermediate Hives / Verified 10/24/23 09:17 Red Face amoxicillin Allergy Unknown n/v Verified 10/24/23 09:17 ketorolac Allergy Unknown HIVES Verified 10/24/23 09:17 Review of Systems Review of Systems: CONSTITUTIONAL: Denies fever, chills, or sweats. ENT: Denies rhinorrhea, congestion, sore throat, or otalgia. Reports dental pain Number 29 tooth which is cracked CARDIOVASCULAR: Denies chest pain, palpitations, or edema. RESPIRATORY: Denies cough or dyspnea. SKIN: Denies rash or itching. MUSCULOSKELETAL: Denies myalgia. NEUROLOGIC: Denies headache All systems reviewed & are unremarkable except as noted in HPI and below PMFSH Past Medical History Medical History Asthma GERD (gastroesophageal reflux disease) HTN (hypertension) Hx of migraines Surgical History Surgical History History of placement of ear tubes Hx of tonsillectomy Family History Family History Mother Breast cancer Grandparent Breast cancer History of kidney cancer Father Hypertension Cerebrovascular accident Sibling Lung cancer Social History Social History Smoking status: Never smoker Second hand tobacco smoke exposure: Yes Alcohol intake: never Substance use: never Living arrangements: with family Comments At time of signature, agree with nursing past medical, surgical, social and family history. There is no relevant family history pertinent to the presenting complaint Exam Narrative: GENERAL: Well-appearing, well-nourished, and in no acute distress. HEAD: Normocephalic, atraumatic. EYES: PERRLA and EOMI. ENT: Nares clear, no rhinorrhea or epistaxis. Mucous membranes moist. Back portion of #29 tooth cracked some redness of gum around tooth no trismus or any Jeffrey angina. NECK: Supple.no lymphadenopathy CHEST: Clear to auscultation. No respiratory distress.SAO2 99% on room air HEART: Regular rate and rhythm. No murmur heard. Normal peripheral pulses. SKIN: Warm, dry, no rash. NEURO: No focal deficits. Alert and oriented x3. Course Course Emergency Course: Patient is aware of diagnosis, understands and agrees to treatment plan. Anticipatory guidance given. Patient agrees to follow-up as directed and is aware of reasons to
== END 2023-11-13 09:16 | disposition home or self-care (01) ==
PROVIDERS: Emergency Provider Registered Nurse; PCP Family Medicine
DX: S02.5XXA Fracture of tooth (traumatic), initial encounter for closed fracture (principal); X58.XXXA Exposure to other specified factors, initial encounter; J45.909 Unspecified asthma, uncomplicated; K21.9 Gastro-esophageal reflux disease without esophagitis; I10 Essential (primary) hypertension
CPT/HCPCS: 99213; G0463

== ENCOUNTER 2024-01-03 10:00 | Emergency (ER) | payer OTHER, SELFPAY ==
--- NOTE | ~2024-01-03 | XR_ITS ---
Left foot Technique: AP, oblique, and lateral views were obtained. Clinical History: Injury Findings: No acute fracture or dislocation is seen. Osseous alignment is anatomic. Joint spaces are p reserved without erosive or degenerative change. Soft tissues are unremarkable. Impression: Unremarkable left foot radiographs. Reviewed, dictated and finalized at location . Impression: Unremarkable left foot radiographs.
[2024-01-03 10:05] VITALS: BP 120/73; PULSE 76; RESP 16; TEMP 36.7; O2SAT 100
--- NOTE | 2024-01-03 10:39 | ED.LOWEXIN ---
HPI - Extremity Injury (Lower) General Chief Complaint: Extremity Injury, Lower Stated Complaint: Fall Injury Source: patient Mode of arrival: ambulatory Limitations: no limitations History of Present Illness HPI Narrative: 28-year-old female presented for complaint of left foot pain for 2 days. States injury occurred when she stepped off of her elevated box springs while holding up her mattress. States she landed on a ratchet in the middle of the foot which is where the pain is located. Pain radiates up to the mid lower leg and to the toes. Reports swelling to the top of the foot. Denies bruising or deformity. Taking ibuprofen, tylenol, and using ice/heat. Related Data Allergies Allergy/AdvReac Type Severity Reaction Status Date / Time raspberry Allergy Severe Swelling Verified 01/03/24 10:35 of Lip/Tongue/Throat aspirin Allergy Intermediate Nausea and Verified 01/03/24 10:35 Vomiting ibuprofen Allergy Intermediate Gastrointestinal Verified 01/03/24 10:35 Upset latex Allergy Intermediate Rash Verified 01/03/24 10:35 tramadol Allergy Intermediate Hives / Verified 01/03/24 10:35 Red Face amoxicillin Allergy Unknown n/v Verified 01/03/24 10:35 ketorolac Allergy Unknown HIVES Verified 01/03/24 10:35 Review of Systems Review of Systems: CONSTITUTIONAL: Denies body aches, fever, chills CARDIOVASCULAR: Denies chest pain, palpitations, or edema. RESPIRATORY: Denies cough or dyspnea. SKIN: Denies rash, itching, or wounds. MUSCULOSKELETAL: reports left foot pain Denies back pain, joint pain, or myalgia. NEUROLOGIC: Denies headache, numbness, tingling, or weakness. All systems reviewed & are unremarkable except as noted in HPI and below PMFSH Past Medical History Medical History Asthma GERD (gastroesophageal reflux disease) HTN (hypertension) Hx of migraines Surgical History Surgical History History of placement of ear tubes Hx of tonsillectomy Family History Family History Mother Breast cancer Grandparent Breast cancer History of kidney cancer Father Hypertension Cerebrovascular accident Sibling Lung cancer Social History Social History Smoking status: Never smoker Second hand tobacco smoke exposure: Yes Alcohol intake: never Substance use: never Living arrangements: with family Comments At time of signature, I have reviewed and agree with nursing past medical, surgical, social and family history unless otherwise noted. Please see nursing chart for further information. There is no relevant family history pertinent to the presenting complaint Exam Narrative: GENERAL: Well-appearing CHEST: Speaks in full sentences. No respiratory distress. HEART: Regular rate and rhythm. Normal and equal peripheral pulses. EXTREMITIES: Left foot has normal strength and sensation, normal range of motion. Mild swelling to dorsal aspect of left foot. Tender across arch of foot. No ecchymosis, No open wounds, or obvious deformity; alignment normal, pulse palpable and equal bilaterally, skin warm, dry, pink. Capillary refill less than 3 seconds. SKIN: Warm, dry, no rash. NEURO: Alert and oriented x3. PSYCH: Normal mood and affect Course Course Emergency Course: Patient is aware of diagnosis, understands and agrees to treatment plan. Anticipatory guidance given. Patient agrees to follow-up as directed and is aware of reasons to seek care at the emergency department. Portions of this record may have been created with voice recognition software Level of Care: Express Care Visit Vital Signs Vital signs: Vital Signs Temperature 98.1 F 01/03/24 10:05 Pulse Rate 76 01/03/24 10:05 Respiratory Rate 16 01/03/24 10:05 Blood Pressure 120/73 04
== END 2024-01-03 11:42 | disposition home or self-care (01) ==
PROVIDERS: Emergency Provider Nurse Practitioner Family; PCP Family Medicine
DX: S96.912A Strain of unspecified muscle and tendon at ankle and foot level, left foot, initial encounter (principal); W22.8XXA Striking against or struck by other objects, initial encounter; J45.909 Unspecified asthma, uncomplicated; K21.9 Gastro-esophageal reflux disease without esophagitis; I10 Essential (primary) hypertension
CPT/HCPCS: 73630; 99213; G0463

== ENCOUNTER 2024-01-14 14:10 | Emergency (ER) | payer OTHER, SELFPAY ==
[2024-01-14 14:15] VITALS: BP 131/71; PULSE 77; RESP 16; TEMP 36.4; O2SAT 100
--- NOTE | 2024-01-14 14:26 | ED.FEMALEGU ---
HPI - Female Genitourinary General Chief complaint: Urogenital-Female Stated complaint: Urinary Problem History of Present Illness HPI Narrative: PATIENT PRESENTS WITH BURNING WITH URINATION URINARY FREQUENCY AND VOIDS SMALL AMOUNTS. NO FLANK PAIN NO GROSS HEMATURIA NO ABDOMINAL PAIN NO PELVIC PAIN NO CONCERN FOR STDS Related Data Home Medications Medication Instructions Recorded Confirmed No Home Medications 01/14/24 01/14/24 Allergies Allergy/AdvReac Type Severity Reaction Status Date / Time raspberry Allergy Severe Swelling Verified 01/14/24 14:33 of Lip/Tongue/Throat aspirin Allergy Intermediate Nausea and Verified 01/14/24 14:33 Vomiting ibuprofen Allergy Intermediate Gastrointestinal Verified 01/14/24 14:33 Upset latex Allergy Intermediate Rash Verified 01/14/24 14:33 tramadol Allergy Intermediate Hives / Verified 01/14/24 14:33 Red Face amoxicillin Allergy Unknown n/v Verified 01/14/24 14:33 ketorolac Allergy Unknown HIVES Verified 01/14/24 14:33 Review of Systems Review of Systems: CONSTITUTIONAL: DENIES FEVER, CHILLS, OR SWEATS. EYES: DENIES VISUAL CHANGES, REDNESS, OR DISCHARGE. ENT: DENIES RHINORRHEA, CONGESTION, SORE THROAT, OR OTALGIA. CARDIOVASCULAR: DENIES CHEST PAIN, PALPITATIONS, OR EDEMA. RESPIRATORY: DENIES COUGH OR DYSPNEA. GASTROINTESTINAL: DENIES ABDOMINAL PAIN, NAUSEA, VOMITING, OR DIARRHEA. GENITOURINARY: DENIES DYSURIA OR HEMATURIA. SKIN: DENIES RASH OR ITCHING. MUSCULOSKELETAL: DENIES BACK PAIN, JOINT PAIN, OR MYALGIA. NEUROLOGIC: DENIES HEADACHE, NUMBNESS, OR WEAKNESS. PSYCHIATRIC: DENIES ANXIETY OR DEPRESSION. [facility] Past Medical History Medical History Asthma GERD (gastroesophageal reflux disease) HTN (hypertension) Hx of migraines Surgical History Surgical History History of placement of ear tubes Hx of tonsillectomy Family History Family History Mother Breast cancer Grandparent Breast cancer History of kidney cancer Father Hypertension Cerebrovascular accident Sibling Lung cancer Social History Social History Smoking status: Never smoker Second hand tobacco smoke exposure: Yes Alcohol intake: never Substance use: never Living arrangements: with family Comments AT TIME OF SIGNATURE, AGREE WITH NURSING PAST MEDICAL, SURGICAL, SOCIAL AND FAMILY HISTORY. THERE IS NO RELEVANT FAMILY HISTORY PERTINENT TO THE PRESENTING COMPLAINT Exam Narrative: GENERAL: WELL-APPEARING, WELL-NOURISHED, AND IN NO ACUTE DISTRESS. HEAD: NORMOCEPHALIC, ATRAUMATIC. EYES: PERRLA AND EOMI. ENT: NARES CLEAR, NO RHINORRHEA OR EPISTAXIS. MUCOUS MEMBRANES MOIST. NECK: SUPPLE. CHEST: CLEAR TO AUSCULTATION. NO RESPIRATORY DISTRESS. HEART: REGULAR RATE AND RHYTHM. NO MURMUR HEARD. NORMAL PERIPHERAL PULSES. ABDOMEN: SOFT, NONTENDER, NONDISTENDED, NORMAL ACTIVE BOWEL SOUNDS. EXTREMITIES: NORMAL RANGE OF MOTION. NO EDEMA. SKIN: WARM, DRY, NO RASH. NEURO: NO FOCAL DEFICITS. ALERT AND ORIENTED X3. CHIVO COMA SCALE EYE OPENING: SPONTANEOUS 4 CHIVO COMA SCALE MOTOR: OBEYS COMMANDS 6 CHIVO COMA SCALE VERBAL: ORIENTED 5 CHIVO COMA SCALE TOTAL 15 Course Course Level of Care: Express Care Visit Vital Signs Vital signs: Vital Signs Temperature 36.4 C 01/14/24 14:15 Pulse Rate 77 01/14/24 14:15 Respiratory Rate 16 01/14/24 14:15 Blood Pressure 131/71 01/14/24 14:15 Pulse Oximetry 100 01/14/24 14:15 Oxygen Delivery Room Air 01/14/24 14:15 Temperature 36.4 C 01/14/24 14:15 Pulse Rate 77 01/14/24 14:15 Respiratory Rate 16 01/14/24 14:15 Blood Pressure 131/71 01/14/24 14:15 Pulse Oximetry 100 01/14/24 14:15 Oxygen Delivery Room Air 01/14/24 14:15 PLEASE JAYSON SCHEDULE A FOLLOWU
== END 2024-01-14 15:00 | disposition home or self-care (01) ==
PROVIDERS: Emergency Provider Nurse Practitioner Family; PCP Family Medicine
DX: R30.0 Dysuria (principal); J45.909 Unspecified asthma, uncomplicated; K21.9 Gastro-esophageal reflux disease without esophagitis; I10 Essential (primary) hypertension
CPT/HCPCS: 81003; 87086; 99213; G0463

== ENCOUNTER 2024-05-07 12:11 | Emergency (ER) | payer OTHER, SELFPAY ==
[2024-05-07 12:16] VITALS: BP 129/72; PULSE 79; RESP 20; TEMP 36.8; O2SAT 99
--- NOTE | 2024-05-07 12:58 | ED.URI ---
HPI - URI/Sore Throat General Chief Complaint: Upper Respiratory Infection Stated Complaint: burning in chest Time Seen by Provider: 05/07/24 12:40 Source: patient, RN notes reviewed and old records reviewed Mode of arrival: ambulatory Limitations: no limitations History of Present Illness HPI Narrative: 29 year old female ho presents to [facility] care with 3 weeks of sinus congestion states thought was allergies and she has been taking Claritin,. She reports that she has had 3 days of a productive cough at times of green yellowish mucous and burning in chest since last night. Patient reports that she has inhaler but thinks it is outdated has not used. Patient reports no fevers or any acute dyspnea with SAO2 99% on room air and no tachypnea noted. MD elicited complaint: cough and other (upper chest burning) Pertinent past history: asthma and seasonal allergies Onset (ago): day(s) (3 days cough burning upper chest since last night) Severity: moderate Pain scale (0-10): 5 Description of mucous: yellow and green Able to tolerate fluids by mouth: Yes Treatments prior to arrival: acetaminophen and other (Claritin) Related Data Home Medications Medication Instructions Recorded Confirmed omeprazole 40 mg capsule,delayed 40 mg PO DAILY 05/07/24 05/07/24 release Allergies Allergy/AdvReac Type Severity Reaction Status Date / Time raspberry Allergy Severe Swelling Verified 05/07/24 12:45 of Lip/Tongue/Throat aspirin Allergy Intermediate Nausea and Verified 05/07/24 12:45 Vomiting ibuprofen Allergy Intermediate Gastrointestinal Verified 05/07/24 12:45 Upset latex Allergy Intermediate Rash Verified 05/07/24 12:45 tramadol Allergy Intermediate Hives / Verified 05/07/24 12:45 Red Face amoxicillin Allergy Unknown n/v Verified 05/07/24 12:45 ketorolac Allergy Unknown HIVES Verified 05/07/24 12:45 Review of Systems Review of Systems: CONSTITUTIONAL: Denies malaise, chills, sweats, or fever. EYES: Denies visual changes, redness, or discharge. ENT: Reports rhinorrhea, congestion, no sinus pain,no otalgia and no sore throat. CARDIOVASCULAR: Denies chest pain, palpitations, or edema, states burning upper chest RESPIRATORY: Reports cough.? Denies dyspnea. GASTROINTESTINAL: Denies abdominal pain, nausea, vomiting, diarrhea SKIN: Denies rash or itching. MUSCULOSKELETAL: Denies myalgia. NEUROLOGIC: Denies headache. All systems reviewed & are unremarkable except as noted in HPI and below PMFSH Past Medical History Medical History Anxiety Asthma GERD (gastroesophageal reflux disease) HTN (hypertension) Hx of migraines Surgical History Surgical History History of placement of ear tubes Hx of tonsillectomy Family History Family History Mother Breast cancer Grandparent Breast cancer History of kidney cancer Father Hypertension Cerebrovascular accident Sibling Lung cancer Social History Social History Smoking status: Never smoker Second hand tobacco smoke exposure: Yes Alcohol intake: never Substance use: never Living arrangements: with family Comments At time of signature, agree with nursing past medical, surgical, social and family history. There is no relevant family history pertinent to the presenting complaint Exam Narrative: GENERAL: Well-appearing, well-nourished, obese and in no acute distress. HEAD: Normocephalic EYES: PERRLA, conjunctivae clear ENT: Nares clear, turbinates edematous and erythematous, clear discharge. Mucous membranes moist. TM pearly hodge with dull light reflex bilaterally; no tragal tenderness. Oropharynx erythematous without lesions. Tonsils not present and throat without exudate, no drooling, no hoarseness,
== END 2024-05-07 13:15 | disposition home or self-care (01) ==
PROVIDERS: Emergency Provider Registered Nurse; PCP Family Medicine
DX: J45.901 Unspecified asthma with (acute) exacerbation (principal); J45.909 Unspecified asthma, uncomplicated; K21.9 Gastro-esophageal reflux disease without esophagitis; I10 Essential (primary) hypertension
CPT/HCPCS: 99213; G0463

== ENCOUNTER 2024-05-23 18:42 | Emergency (ER) | payer OTHER, SELFPAY ==
--- NOTE | 2024-05-23 19:01 | ED.WOUNDLAC ---
HPI - Wound/Laceration General Chief Complaint: Skin/Abscess/Foreign Body Stated Complaint: Laceration to Right Arm Time Seen by Provider: 05/23/24 19:01 Source: patient, family, RN notes reviewed and old records reviewed Mode of arrival: ambulatory Limitations: no limitations History of Present Illness HPI narrative: 29 year old female accompanied by son presents to express care with claw scratch or tooth homer to her right forearm which occurred about 20 minutes prior to arrival. Patient states that she was playing with the 7 month olf [place] puppy and dog jumped onto the bed and she wasn't sure if it was claw or from tooth that cut her right forearm. Patient states that she had some bloody drainage from site but bleeding under control at present time. Patient has 0.5cm superficial wound to right forearm that is in mole on right forearm with bleeding controlled. Onset (ago): minute(s) (about 20 minutes prior to arrival) Location: other (right forearm) Extremity Location: Right: forearm Place: home Patient tetanus UTD: Yes Treatments prior to arrival: bandage Related Data Allergies Allergy/AdvReac Type Severity Reaction Status Date / Time raspberry Allergy Severe Swelling Verified 05/07/24 12:45 of Lip/Tongue/Throat aspirin Allergy Intermediate Nausea and Verified 05/07/24 12:45 Vomiting ibuprofen Allergy Intermediate Gastrointestinal Verified 05/07/24 12:45 Upset latex Allergy Intermediate Rash Verified 05/07/24 12:45 tramadol Allergy Intermediate Hives / Verified 05/07/24 12:45 Red Face amoxicillin Allergy Unknown n/v Verified 05/07/24 12:45 ketorolac Allergy Unknown HIVES Verified 05/07/24 12:45 Review of Systems Review of Systems: CONSTITUTIONAL: Denies fever, chills, or sweats. EYES: Denies visual changes, redness, or discharge. ENT: Denies rhinorrhea, congestion, sore throat, or otalgia. CARDIOVASCULAR: Denies chest pain, palpitations, or edema. RESPIRATORY: Denies cough or dyspnea. GASTROINTESTINAL: Denies abdominal pain, nausea, vomiting, or diarrhea. GENITOURINARY: Denies dysuria or hematuria. SKIN: Denies rash or itching.laceration to right forearm at site of homer/mole with no active bleeding noted or measurable depth. MUSCULOSKELETAL: Denies back pain, joint pain, or myalgia. NEUROLOGIC: Denies headache, numbness, or weakness. PSYCHIATRIC: Positive for history of anxiety or depression. All systems reviewed & are unremarkable except as noted in HPI and below PMFSH Past Medical History Medical History Anxiety Asthma GERD (gastroesophageal reflux disease) HTN (hypertension) Hx of migraines Surgical History Surgical History History of placement of ear tubes Hx of tonsillectomy Family History Family History Mother Breast cancer Grandparent Breast cancer History of kidney cancer Father Hypertension Cerebrovascular accident Sibling Lung cancer Social History Social History Smoking status: Never smoker Second hand tobacco smoke exposure: Yes Alcohol intake: never Substance use: never Living arrangements: with family Comments At time of signature, agree with nursing past medical, surgical, social and family history. There is no relevant family history pertinent to the presenting complaint Exam Narrative: GENERAL: Well-appearing, well-nourished, and in no acute distress. HEAD: Normocephalic, atraumatic. EYES: PERRLA and EOMI. ENT: Nares clear, no rhinorrhea or epistaxis. Mucous membranes moist.TM's normal throat pink with no swelling NECK: Supple. no lymphadenopathy CHEST: Clear to auscultation. No respiratory distress.SAO2 100% on room air HEART: Regular rate and rhythm. No murmur heard. Normal peripheral pulses. ABDOMEN: Soft,
[2024-05-23 19:03] VITALS: BP 115/92; PULSE 87; RESP 16; TEMP 37.6; O2SAT 100
== END 2024-05-23 19:24 | disposition home or self-care (01) ==
PROVIDERS: Emergency Provider Registered Nurse; PCP Family Medicine
DX: S51.811A Laceration without foreign body of right forearm, initial encounter (principal); W54.8XXA Other contact with dog, initial encounter; J45.909 Unspecified asthma, uncomplicated; K21.9 Gastro-esophageal reflux disease without esophagitis; I10 Essential (primary) hypertension
CPT/HCPCS: 99213; G0463

== ENCOUNTER 2024-07-12 11:16 | Emergency (ER) | payer OTHER, SELFPAY ==
--- NOTE | 2024-07-12 11:22 | ED.SKABFB ---
HPI - Skin/Abscess/Foreign Bdy General Chief complaint: Skin/Abscess/Foreign Body Stated complaint: Hives Time Seen by Provider: 07/12/24 11:57 Source: patient and RN notes reviewed Mode of arrival: ambulatory Limitations: no limitations History of Present Illness HPI narrative: 29-year-old female presents with concern for rash to her chest, arms, legs it came on suddenly while she was at work. She reports her ears feel very itchy and her tongue feels itchy. She denies swollen lips, swollen tongue, trouble breathing. She denies known triggers, she has had a reaction similar to this in the past without knowing with trigger was. MD complaint: rash Related Data Home Medications Medication Instructions Recorded Confirmed fluoxetine 10 mg capsule mg 07/12/24 sumatriptan succinate 100 mg tablet mg PO 07/12/24 Allergies Allergy/AdvReac Type Severity Reaction Status Date / Time raspberry Allergy Severe Swelling Verified 07/12/24 11:30 of Lip/Tongue/Throat aspirin Allergy Intermediate Nausea and Verified 07/12/24 11:30 Vomiting ibuprofen Allergy Intermediate Gastrointestinal Verified 07/12/24 11:30 Upset latex Allergy Intermediate Rash Verified 07/12/24 11:30 tramadol Allergy Intermediate Hives / Verified 07/12/24 11:30 Red Face amoxicillin Allergy Unknown n/v Verified 07/12/24 11:30 ketorolac Allergy Unknown HIVES Verified 07/12/24 11:30 Review of Systems Review of Systems: CONSTITUTIONAL: Denies malaise, chills, sweats, or fever. EYES: Denies redness, or discharge. ENT: Denies rhinorrhea, congestion, swollen lips, swollen tongue CARDIOVASCULAR: Denies chest pain, palpitations, or edema. RESPIRATORY: Denies cough or dyspnea. GASTROINTESTINAL: Denies abdominal pain, nausea, vomiting SKIN: Reports itchy rash to her chest, arms, legs MUSCULOSKELETAL: Denies joint pain or myalgia. NEUROLOGIC: Denies headache. All systems reviewed & are unremarkable except as noted in HPI and below PMFSH Past Medical History Medical History Anxiety Asthma GERD (gastroesophageal reflux disease) HTN (hypertension) Hx of migraines Surgical History Surgical History History of placement of ear tubes Hx of tonsillectomy Family History Family History Mother Breast cancer Grandparent Breast cancer History of kidney cancer Father Hypertension Cerebrovascular accident Sibling Lung cancer Social History Social History Smoking status: Never smoker Second hand tobacco smoke exposure: Yes Alcohol intake: never Substance use: never Living arrangements: with family Comments At time of signature, agree with nursing past medical, surgical, social and family history. There is no relevant family history pertinent to the presenting complaint Exam Narrative: GENERAL: Well-appearing, well-nourished, and in no acute distress. HEAD: Normocephalic, atraumatic. EYES: PERRLA, conjunctivae clear, and EOMI. ENT: Mucous membranes moist. Oropharynx without edema, erythema or lesions. NECK: Supple. No lymphadenopathy CHEST: Clear to auscultation. No respiratory distress. HEART: Regular rate and rhythm. SKIN: Warm, dry. Discrete Erythematous papules noted to the chest, arms NEURO: Alert and oriented x3. PSYCH: Normal mood and affect Course Course Emergency Course: Patient is aware of diagnosis, understands and agrees to treatment plan. Anticipatory guidance given. Patient agrees to follow-up as directed and is aware of reasons to seek care at the emergency department. Portions of this record may have been created with voice recognition software Level of Care: Express Care Visit Vital Signs Vital signs: Vital Signs Temperature 98.0 F 07/12/24 11:32 Pulse Rate
[2024-07-12 11:32] VITALS: BP 114/73; PULSE 90; RESP 16; TEMP 36.7; O2SAT 100
[2024-07-12] MEDS: predniSONE 20 MG TABLET 40 MG PO (12:16)
== END 2024-07-12 12:17 | disposition home or self-care (01) ==
PROVIDERS: Emergency Provider Nurse Practitioner; PCP Family Medicine
DX: R21 Rash and other nonspecific skin eruption (principal); J45.909 Unspecified asthma, uncomplicated; K21.9 Gastro-esophageal reflux disease without esophagitis; I10 Essential (primary) hypertension; F41.9 Anxiety disorder, unspecified
CPT/HCPCS: 99213; G0463; J7512

== ENCOUNTER 2024-10-19 13:58 | Emergency (ER) | payer OTHER, SELFPAY ==
[2024-10-19 14:06] VITALS: BP 130/76; PULSE 89; RESP 16; O2SAT 100
--- NOTE | 2024-10-19 14:13 | ED.FEMALEGU ---
HPI - Female Genitourinary General Chief complaint: Urogenital-Female Stated complaint: Vaginal Issue Time Seen by Provider: 10/19/24 14:13 Source: patient and RN notes reviewed Mode of arrival: ambulatory Limitations: no limitations History of Present Illness HPI Narrative: 29 y/o female presented for c/o vaginal itching. Worsening since onset yesterday. Endorses white 'cottage cheese' appearing discharge. States she has changed her soap and took a bubble bath recently. Denies concern for std. denies hematuria, nausea, vomiting, abdominal pain, flank pain, constipation, diarrhea, fevers or chills. Related Data Home Medications ?Medication ?Instructions ?Recorded ?Confirmed ?Last Taken ?Type fluoxetine 10 mg capsule mg 07/12/24 Unknown History sumatriptan succinate 100 mg tablet mg PO 07/12/24 Unknown History buspirone 5 mg tablet mg 10/19/24 Unknown History omeprazole 40 mg capsule,delayed mg 10/19/24 Unknown History release pantoprazole 40 mg tablet,delayed mg PO 10/19/24 Unknown History release Allergies Allergy/AdvReac Type Severity Reaction Status Date / Time raspberry Allergy Severe Swelling Verified 10/19/24 14:05 of Lip/Tongue/Throat aspirin Allergy Intermediate Nausea and Verified 10/19/24 14:05 Vomiting ibuprofen Allergy Intermediate Gastrointestinal Verified 10/19/24 14:05 Upset latex Allergy Intermediate Rash Verified 10/19/24 14:05 tramadol Allergy Intermediate Hives / Verified 10/19/24 14:05 Red Face amoxicillin Allergy Unknown n/v Verified 10/19/24 14:05 ketorolac Allergy Unknown HIVES Verified 10/19/24 14:05 Review of Systems Review of Systems: CONSTITUTIONAL: Denies body aches, fever, chills, or sweats. CARDIOVASCULAR: Denies chest pain, palpitations, or edema. RESPIRATORY: Denies cough or dyspnea. GASTROINTESTINAL: Denies abdominal pain, nausea, vomiting, or diarrhea. GENITOURINARY: Reports vaginal itching. Denies dysuria, frequency, urgency, hematuria, flank pain SKIN: Denies rash, itching, or wounds. MUSCULOSKELETAL: Denies back pain or myalgia. [facility] Past Medical History Medical History Anxiety Hx of migraines GERD (gastroesophageal reflux disease) HTN (hypertension) Asthma Surgical History Surgical History History of placement of ear tubes Hx of tonsillectomy Family History Family History Mother Breast cancer Grandparent Breast cancer History of kidney cancer Father Hypertension Cerebrovascular accident Sibling Lung cancer Social History Social History Smoking status: Never smoker Second hand tobacco smoke exposure: Yes Alcohol intake: never Substance use: never Living arrangements: with family Comments At time of signature, I have reviewed and agree with nursing past medical, surgical, social and family history unless otherwise noted. Please see nursing chart for further information. There is no relevant family history pertinent to the presenting complaint Exam Narrative: GENERAL: Well-appearing ENT: Mucous membranes pink and moist. CHEST: No respiratory distress. Clear to auscultation. HEART: Regular rate and rhythm. ABDOMEN: Soft, nontender, nondistended, normal active bowel sounds. No CVA tenderness NEURO: No focal deficits. Alert and oriented x3. Gait steady. PSYCH: Normal affect. Course Course Emergency Course: Patient is aware of diagnosis, understands and agrees to treatment plan. Anticipatory guidance given. Patient agrees to follow-up as directed and is aware of reasons to seek care at the emergency department. Portions of this record may have been created with voice recognition software Level of Care: Express Care Visit Vital Signs Vital signs: Reviewed MDM - Female Genitourinary MDM Narrative Medical decision making narrative: Pt declined pelvic exam, will treat for Yeast. Advised supportive measures and signs/symptoms to go to the ER. Pt is appropriate for outpt treatment and f/u. Differential Diagnosis Differential diagnosis: Likely urinary tract infection, bacterial vaginosis and vaginitis Discharge Plan Discharge Clinical Impression: Vaginitis Qualifiers: Chronicity: acute Qualified Code(s): N76.0 - Acute vaginitis Patient Disposition: Home, Self-Care Condition: Stable Instructions: Antibiotic Form, Yeast Infection (ED) Additional Instructions: Keep skin clean, dry and well aerated Wear cotton underpants. Double rinse underpants after washing. Avoid fabric softeners for underpants and swimsuits. Avoid tights, leotards, leggings. Wearing loose fitting pants/skirts allow air to circulate. Avoid wearing wet swimsuits for long periods of time. Avoid bubble baths or perfumed soap Rinse genital area well and pat dry gently Cool compresses may help relieve the redness/irritation. Aquaphor, vaseline or A&D ointment may help protect the skin. Take medication as directed Follow up with your primary care provider as needed in 1 week Go to the ER for worsening symptoms or concerns Patient Language: Armenian Prescriptions: New fluconazole 150 mg tablet 150 mg PO DAILY Qty: 2 0RF No Action buspirone 5 mg tablet omeprazole 40 mg capsule,delayed release(DR/EC) pantoprazole 40 mg tablet,delayed release (DR/EC) PO fluoxetine 10 mg capsule sumatriptan succinate 100 mg tablet PO Follow-up/Referrals: Noe,Dion Hathaway MD [Primary Care Provider] -
== END 2024-10-19 14:25 | disposition home or self-care (01) ==
PROVIDERS: Emergency Provider Nurse Practitioner Family; PCP Family Medicine
DX: N76.0 Acute vaginitis (principal); I10 Essential (primary) hypertension; J45.909 Unspecified asthma, uncomplicated; K21.9 Gastro-esophageal reflux disease without esophagitis
CPT/HCPCS: 99213; G0463

== ENCOUNTER 2025-04-18 16:48 | Emergency (ER) | payer OTHER, SELFPAY ==
--- NOTE | ~2025-04-18 | XR_ITS ---
EXAM: XR foot RT min 3V DATE: 04/18/2025 17:14 HISTORY: EVERSION INJURY, GEN MEDIAL PAIN . COMPARISON: None available. FINDINGS: Osteopenia. No fracture or dislocation. No lytic or blastic lesion. Joint spaces are maint ained. No erosion or periosteal change. Soft tissues within normal limits. IMPRESSION: No acute osseous finding in the right foot. Reviewed, dictated and finalized at location K.
--- OUTSIDE RECORDS SUMMARY | 2025-04-18 16:51 | XMS_ITS | Clinical Summary ---
Author Organization 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 Active SUMAtriptan (IMITREX) 25 MG Tablet Take 1 Tab by mouth once as needed for Migraine for up to 1 dose. Use as directed. May repeat dose in 2 hours if headache recurs. 9 Tab 9 Active meloxicam (MOBIC) 15 MG Tablet Take 1 Tab by mouth daily. 10 Tab 9 Active predniSONE (DELTASONE) 50 MG Tablet Take 1 Tablet by mouth daily. Take your 1st dose on Monday01/08/2021 9 Tablet 1 Active ondansetron (ZOFRAN) 4 MG Tablet Take 1-2 Tablets by mouth every 8 hours as needed for Nausea - 1st line. 10 Tablet 2 Active albuterol 108 (90 Base) MCG/ACT Aerosol Solution take 2 Puffs by inhalation every 6 hours as needed for Wheezing or Cough. 8.5 g 3 Active methylPREDNISol one (MEDROL DOSPACK) 4 MG Tablet Therapy Pack See product package insert for dosing schedule 21 Tablet 3 Active ketorolac (TORADOL) 10 MG Tablet Take 1 Tablet by mouth every 6 hours as needed for Moderate or more severe pain. 20 Tablet 4 Active ondansetron (ZOFRAN) 4 MG Tablet Take 1 Tablet by mouth every 8 hours as needed for Nausea - 1st line. 10 Tablet 4 Active ondansetron (ZOFRAN-ODT) 4 MG TABLET DISPERSIBLEIndi cations:Nausea and Vomiting Take 1 Tablet by mouth every 8 hours as needed for Nausea - 1st line. Indications: Nausea and Vomiting 10 Tablet 4 Active Encounters Date Type Department Care Team Description 02/14/2025 11:39 AM CDT - 02/14/2025 1:47 PM CDT Emergency [facility] [address] [place] [address] Lizabeth Membreno APRN, NIKKI Strain of right shoulder, initial encounter Discharge Disposition: Discharged to home or Selfcare 02/14/2025 Travel from Last 3 Months Immunizations Immunization Administration Dates Next Due Td Vaccine (preservative free) 12/17/2024 Family History Medical History Relation Name Comments Hypertension Father Kidney Cancer Father Stroke Father Colon Cancer Maternal Grandfather Stroke Maternal Grandfather Breast Cancer Maternal Grandmother Breast Cancer Mother Seizures Mother Stroke Paternal Grandfather Relation Name Status Comments Father Maternal Grandfather Maternal Grandmother Mother Paternal Grandfather Social History Tobacco Use Types Packs/Day Years Used Date Smoking Tobacco: Never Smokeless Tobacco: Never Tobacco Cessation:Counseling Given: Not Answered Alcohol Use Standard Drinks/Week Comments No 0 (1 standard drink = 0.6 oz pur e alcohol) Comments No Sex and Gender Information Value Date Recorded Sex Assigned at Female 12/17/2024 7:26 PM CDT Legal Sex Female 11:07 PM CDT Gender Identity Female 12/17/2024 7:26 PM CDT Sexual Orientation Not on file Last Filed Vital Signs Vital Sign Reading Time Taken Comments Blood Pressure 126/72 02/14/2025 1:40 PM CDT Pulse 82 02/14/2025 1:40 PM CDT Temperature 36.7 C (98 F) 02/14/2025 1:40 PM CDT Respiratory Rate 16 02/14/2025 1:40 PM CDT Oxygen Saturation 99% 02/14/2025 1:40 PM CDT Inhaled Oxygen Concentration - - Weight 117.9 kg (260 lb) 02/14/2025 11:37 AM CDT Height 162.6 cm (5' 4) 02/14/2025 11:37 AM CDT Body Mass Index 44.63 02/14/2025 11:37 AM CDT Plan of Treatment Health Maintenance Due Date Last Done Comments Hepatitis C Virus (HCV) Screening 1994 Pap Smear 2015 Cervical Cancer Screening (CCS) 2024 HPV/Cotest 2024 SARS-COV-2 Immunization ( season) 2024 12/16/2021, 10/01/2021, 11/01/2020 Influenza Immunization (#1) 2025 12/0 06/2024, 10/01/2021, 10/07/2020, Additional history exists Respiratory Syncytial Virus (RSV) Immunization (Adult) (1 - 1-dose 75+ series) 2069 Hepatitis B Immunization Completed 995, 1994, 1994 Human Papillomavirus (HPV) Immunization Completed 06/21/2010, 01/25/2010, 11/24/2009 Meningococcal Immunization (ACWY) Completed 03/21/2011 Pneumococcal Immunization Combined Aged Out 02/09/2015 No longer eligible based on patient's age to complete this topic TdaP Immunization Completed 10/18/2017, 11/24/2009 DTaP/Tdap/Td Immunization Discontinued 2024, 10/18/2017, 11/24/2009, Additional history exists Rotavirus Immunization Aged Out No lo nger eligible based on patient's age to complete this topic Procedures Procedure Name Priority Date/Time Associated Diagnosis Comments XR SHOULDER COMPLETE RIGHT STAT 02/14/2025 12:05 PM CDT from Last 3 Months Results * XR SHOULDER COMPLETE RIGHT (02/14/2025 12:05 PM CDT) Anatomical Region Laterality Modality UPPER EXTREMITY, shoulder Right Digita l Radiography 02/14/2025 12:5 7 PM CDT Impressions 02/14/2025 1:00 PM CDT IMPRESSION: No definite evidence of acute displaced fracture or dislocation involving the right shoulder. If clinical symptoms persist, then follow-up radiographs in 7-10 days is recommended. Narrative 02/14/2025 1:00 PM CDT EXAM DESCRIPTION: XR SHOULDER COMPLETE RIGHT REASON FOR STUDY: injury today. right shoulder pain. TECHNIQUE: 4 view(s) of the right shoulder COMPARISON: None FINDINGS: There is no definite evidence of acute displaced fracture or dislocation involving the right shoulder. The right acromioclavicular and glenohumeral intervals are grossly well maintained. The visualized soft tissues are grossly unremarkable. THIS IS AN ELECTRONICALLY VERIFIED FINAL REPORT 02/14/2025 12:57 PM - Electronically signed by Laine Boswell D.O. PS: PS Report ID: [id number] Reading Location: [id number] Procedure Note Laine Boswell DO - 02/14/2025 EXAM DESCRIPTION: XR SHOULDER COMPLETE RIGHT REASON FOR STUDY: injury today. right shoulder pain. TECHNIQUE: 4 view(s) of the right shoulder COMPARISON: None FINDINGS: There is no definite evidence of acute displaced fracture or dislocation involving the right shoulder. The right acromioclavicular and glenohumeral intervals are grossly well maintained. The visualized soft tissues are grossly unremarkable. THIS IS AN ELECTRONICALLY VERIFIED FINAL REPORT 02/14/2025 12:57 PM - Electronically signed by Laine Boswell D.O. PS: PS Report ID: [id number] Reading Location: [id number] IMPRESSION: No definite evidence of acute displaced fracture or dislocation involving the right shoulder. If clinical symptoms persist, then follow-up radiographs in 7-10 days is recommended. Lizabeth Membreno APRN, NIKKI IMG DIAGNOSTIC ORD ERABLES Final Result from Last 3 Months Insurance MEDICAID [employer] [facility] [place] [address] Advance Directives * Full Code (Latest Code Status on File) Date Activated Date Inactivated Comments 12/24/2017 7:18 PM 12/24/2017 10:40 PM CPR-Full Tr eatment: FULL ARREST: Attempt Resuscitation/CPR wit intubation and mechanical ventilation. PRE-ARREST: Use entire range of life support measures to stabilize the patient. Care Teams Electric Shaver Mechanic Relationship Specialty Start Date End Date Dion Liu MD [address] [facility] [address] [place] [address] PCP - General Family Medicine 02/17/21
--- OUTSIDE RECORDS SUMMARY | 2025-04-18 16:56 | XMS_ITS ---
Author Organization Unknown Plan of Treatment Description Planned Activity Planned Timing [facility] is a provider organization who partners directly with Health Plans and provides integrated primary care, behavioral health, and banking services clerk for an attributed population Letter encounter to patientTelephone encounter Mar 27, 2025Jul 2024 Patient Care team information Name Category Status Period Participants - - Proposed period not known -
--- NOTE | 2025-04-18 17:01 | ED_ITS ---
HPI - Extremity Injury (Lower) General Chief Complaint: Extremity Injury, Lower Stated Complaint: Right foot injury Time Seen by Provider: 04/18/25 17:03 Source: patient and RN notes reviewed Mode of arrival: ambulatory Limitations: no limitations History of Present Illness HPI Narrative: 30-year-old female presents with concern for pain in the base of the 1st digit of the right foot. Reports she fell on the basement stairs today. Reports she use ice. MD complaint: foot injury Related Data Allergies Allergy/AdvReac Type Severity Reaction Status Date / Time raspberry Allergy Severe Swelling Verified 11/03/24 13:32 of Lip/Tongue/Throat aspirin Allergy Intermediate Nausea and Verified 11/03/24 13:32 Vomiting ibuprofen Allergy Intermediate Gastrointestinal Verified 11/03/24 13:32 Upset latex Allergy Intermediate Rash Verified 11/03/24 13:32 tramadol Allergy Intermediate Hives / Verified 11/03/24 13:32 Red Face amoxicillin Allergy Unknown n/v Verified 11/03/24 13:32 ketorolac Allergy Unknown HIVES Verified 11/03/24 13:32 Review of Systems Review of Systems: CONSTITUTIONAL: Denies malaise, chills, sweats, or fever. SKIN: Denies rash or itching, open skin, laceration, abrasion, redness, warmth MUSCULOSKELETAL: Reports right foot pain NEUROLOGIC: Denies numbness, weakness All systems reviewed & are unremarkable except as noted in HPI and below PMFSH Past Medical History Medical History (Updated 04/18/25 @ 17:36 by Maddie Strong NP) Ear problems Anxiety Hx of migraines GERD (gastroesophageal reflux disease) HTN (hypertension) Asthma Surgical History Surgical History History of placement of ear tubes Hx of tonsillectomy Family History Family History Mother Breast cancer Grandparent Breast cancer History of kidney cancer Father Hypertension Cerebrovascular accident Sibling Lung cancer Social History Social History Smoking status: Never smoker Second hand tobacco smoke exposure: Yes Alcohol intake: never Substance use: never Living arrangements: with family Comments At time of signature, agree with nursing past medical, surgical, social and family history. There is no relevant family history pertinent to the presenting complaint Exam Narrative: GENERAL: Well-appearing, well-nourished, and in no acute distress. HEAD: Normocephalic, atraumatic. EYES: PERRLA, conjunctivae clear NECK: Supple. CHEST: Speaks in full sentences. No respiratory distress. HEART: Regular rate and rhythm. Normal and equal peripheral pulses. EXTREMITIES: Left foot digits have grossly normal strength and sensation, francine sly normal range of motion. No edema. Mild ecchymosis at the base of the 1st digit. Normal sensation with sensitivity to light touch and pain. No point tenderness. No open wounds, no skin tenting, no devitalized tissue or atrophy, no trophic changes, no obvious deformity, alignment normal, nearby joints and structures intact. Distal pulses palpable and equal bilaterally, skin warm, dry, pink. Capillary refill less than 3 seconds. SKIN: Warm, dry, no rash. NEURO: Alert and oriented x3. PSYCH: Normal mood and affect Course Course Emergency Course: Patient is aware of diagnosis, understands and agrees to treatment plan. Anticipatory guidance given. Patient agrees to follow-up as directed and is aware of reasons to seek care at the emergency department. Portions of this record may have been created with voice recognition software Level of Care: Express Care Visit Vital Signs Vital signs: Reviewed. MDM - Extremity Injury (Lower) MDM Narrative Medical decision making narrative: The patient was evaluated by myself in the express care. History is obtained from patient who is an independent historian and physical exam was performed.? Available medical records were reviewed at this time. ? Exam findings show no acute concerns or changes; patient is non-toxic appearing and is in no distress. Patient is appropriate for outpatient treatment and follow-up. ? I have evaluated and discussed social determinants of health with the patient that could potentially impact subsequent diagnosis and treatment plans. ? Patients injury and pain is consistent with musculoskeletal etiology. No signs of neurological or vascular compromise on exam. Compartments and tissues are soft without signs of compartment syndrome. Pain is felt appropriate for further evaluation on an outpatient basis. Imaging Data My impression: Images reviewed, interpreted by radiologist, agree, see report. Radiologist's impression: EXAM: XR foot RT min 3V DATE: 04/18/2025 17:14 HISTORY: EVERSION INJURY, GEN MEDIAL PAIN . COMPARISON: None available. FINDINGS: Osteopenia. No fracture or dislocation. No lytic or blastic lesion. Joint spaces are maintained. No erosion or periosteal change. Soft tissues within normal limits. IMPRESSION: No acute osseous finding in the right foot. Critical Care Time Critical Care Time Critical Care Time: No Discharge Plan Discharge Clinical Impression: Foot sprain Patient Disposition: Home Condition: Stable Instructions: Foot Sprain (ED) Additional Instructions: Avoid activities that cause pain until the pain subsides. Ice to the area 20-30 minutes 4-6 times a day Elevate above heart Elastic wrap as directed for comfort for the next 5-7 days Tylenol for lesser pain Ibuprofen regularly for the next 2-3 days for the inflammation Follow up with your primary care provider if the condition is not improving within 1 week. If the condition worsens with numbness, tingling, decrease sensation with weakness seek treatment in the emergency room immediately. Patient Language: Chinese Follow-up/Referrals: Noe,Dion Hathaway MD [Primary Care Provider] - Time of Disposition: 17:38
[2025-04-18 17:02] VITALS: BP 143/72; PULSE 89; RESP 16; TEMP 36.4; O2SAT 99
== END 2025-04-18 17:42 | disposition home or self-care (01) ==
PROVIDERS: Emergency Provider Nurse Practitioner; PCP Family Medicine
DX: S93.601A Unspecified sprain of right foot, initial encounter (principal); W10.9XXA Fall (on) (from) unspecified stairs and steps, initial encounter; I10 Essential (primary) hypertension; K21.9 Gastro-esophageal reflux disease without esophagitis; J45.909 Unspecified asthma, uncomplicated
CPT/HCPCS: 73630; 99213; G0463

== ENCOUNTER 2025-08-21 10:50 | Emergency (ER) | payer OTHER, SELFPAY ==
[2025-08-21 10:54] VITALS: BP 138/68; PULSE 82; RESP 20; TEMP 36.6; O2SAT 99
--- NOTE | 2025-08-21 10:58 | ED.URI ---
HPI - URI/Sore Throat General Chief Complaint: Upper Respiratory Infection Stated Complaint: sore throat Time Seen by Provider: 08/21/25 11:00 Source: patient, RN notes reviewed and old records reviewed Mode of arrival: ambulatory Limitations: no limitations History of Present Illness HPI Narrative: 30 year old female who presents to [facility] care with complaints of 3-4 days of sore throat, feels like fire with her breathing has had chills and feels fatigued. Patient reports that she has taken Tylenol for her symptoms. Patient reports that she has been doing some deep cleaning at work concerned chemical irritated her breathing has history of asthma, has not used her inhaler. MD elicited complaint: cough and sore throat Pertinent past history: asthma and other (strep) Onset (ago): day(s) (3-4 days) Pain scale (0-10): 6 Able to tolerate fluids by mouth: Yes Treatments prior to arrival: acetaminophen Related Data Home Medications ?Medication ?Instructions ?Recorded ?Confirmed ?Last Taken ?Type albuterol sulfate 90 mcg/actuation inhalation 08/21/25 Unknown History aerosol inhaler norgestimate 0.25 mg-ethinyl tablet 08/21/25 Unknown History estradiol 0.035 mg tablet (Naya) Allergies Allergy/AdvReac Type Severity Reaction Status Date / Time raspberry Allergy Severe Swelling Verified 08/21/25 10:58 of Lip/Tongue/Throat aspirin Allergy Intermediate Nausea and Verified 08/21/25 10:58 Vomiting ibuprofen Allergy Intermediate Gastrointestinal Verified 08/21/25 10:58 Upset latex Allergy Intermediate Rash Verified 08/21/25 10:58 tramadol Allergy Intermediate Hives / Verified 08/21/25 10:58 Red Face amoxicillin Allergy Unknown n/v Verified 08/21/25 10:58 ketorolac Allergy Unknown HIVES Verified 08/21/25 10:58 Review of Systems Review of Systems: CONSTITUTIONAL: Reports malaise, chills, sweats, or fever.fatigue EYES: Denies visual changes, redness, or discharge. ENT: Reports rhinorrhea, congestion, sinus pain,no otalgia and +sore throat. CARDIOVASCULAR: Denies chest pain, palpitations, or edema.states some burning in chest with her breathing RESPIRATORY: Reports cough.? Denies dyspnea. GASTROINTESTINAL: Denies abdominal pain, nausea, vomiting, diarrhea SKIN: Denies rash or itching. MUSCULOSKELETAL: Denies myalgia. NEUROLOGIC: Denies headache. All systems reviewed & are unremarkable except as noted in HPI and below PMFSH Past Medical History Medical History Ear problems Anxiety Hx of migraines GERD (gastroesophageal reflux disease) HTN (hypertension) Asthma Surgical History Surgical History History of placement of ear tubes Hx of tonsillectomy Family History Family History Mother Breast cancer Grandparent Breast cancer History of kidney cancer Father Hypertension Cerebrovascular accident Sibling Lung cancer Social History Social History Smoking status: Never smoker Second hand tobacco smoke exposure: Yes Alcohol intake: never Substance use: never Living arrangements: with family Comments At time of signature, agree with nursing past medical, surgical, social and family history. There is no relevant family history pertinent to the presenting complaint Exam Narrative: GENERAL: Well-appearing, well-nourished, and in no acute distress. HEAD: Normocephalic EYES: PERRLA, conjunctivae clear ENT: Nares clear, turbinates edematous and erythematous, clear discharge. Mucous membranes moist. TM pearly hodge with dull light reflex bilaterally; no tragal tenderness. Oropharynx erythematous without lesions. Tonsils not present and throat without exudate, no drooling, no hoarseness, no trismus, uvula midline.post nasal drainage noted NECK: Supple. No lymphadenopathy CHEST: Clear to auscultation, breath sounds equal. No wheezing, rhonchi, rales, or stridor. No respiratory distress, speaks in full sentences.occasional cough noted SAO2 99% on room air HEART: Regular rate and rhythm. No murmur heard. SKIN: Warm, dry, no rash. NEURO: Alert and oriented x3. PSYCH: Normal mood and affect Course Course Emergency Course: Patient is aware of diagnosis, understands and agrees to treatment plan.? Anticipatory guidance given.? Patient agrees to follow-up as directed and is aware of reasons to seek care at the emergency department. Portions of this record may have been created with voice recognition software [employer] of Care: Express Care Visit Vital Signs Vital signs: Vital Signs Temperature 36.6 C 08/21/25 10:54 Pulse Rate 82 08/21/25 10:54 Respiratory Rate 20 08/21/25 10:54 Blood Pressure 138/68 08/21/25 10:54 Pulse Oximetry 99 08/21/25 10:54 Oxygen Delivery Room Air 08/21/25 10:54 Temperature 36.6 C 08/21/25 10:54 Pulse Rate 82 08/21/25 10:54 Respiratory Rate 20 08/21/25 10:54 Blood Pressure 138/68 08/21/25 10:54 Pulse Oximetry 99 08/21/25 10:54 Oxygen Delivery Room Air 08/21/25 10:54 Reviewed MDM - URI/Sore Throat MDM Narrative Medical decision making narrative: Differential diagnosis considered: Cullen virus, strep pharyngitis, allergic rhinitis, upper respiratory tract infection, sinusitis, rhinosinusitis, nasopharyngitis. viral pharyngitis, otitis media, otitis externa, pneumonia, bronchitis, viral cough syndrome, viral syndrome, and influenza.? Exam findings show no acute concerns or changes; patient is non-toxic appearing and is in no distress.? Patient is appropriate for outpatient treatment and follow-up. Differential Diagnosis Differential diagnosis: Likely upper respiratory infection, viral infection, influenza, pharyngitis and other (strep pharyngitis, COVID) Lab Data Attestation: I reviewed the patient's lab results. Lab results narrative: strep screen negative, strep culture sent, Influenza A negative, Influenza B negative, COVID antigen negative Labs: Lab Results 08/21/25 08/21/25 Range/Units 11:07 11:12 POC Influenza A Ag Negative (Negative) POC Influenza B Ag Negative (Negative) POC SARS CoV-2 Ag Negative (Negative) POC Grp A Strep Screen Negative (Negative) reviewed Critical Care Time Critical Care Time Critical Care Time: No Discharge Plan Discharge Clinical Impression: Upper respiratory infection Qualifiers: URI type: unspecified URI Qualified Code(s): J06.9 - Acute upper respiratory infection, unspecified Patient Disposition: Home Condition: Stable Instructions: Antibiotic Form, Upper Respiratory Infection (ED) Additional Instructions: Increase fluids especially juices and water [id number] cough and cold medicine of your choice for your symptoms Continue your inhaler/nebulizer as directed Steroids as directed--take with food Medrol Dosepak take as presc heat to the face 20-30 minutes 4-6 times a day for pain Salt water gargles, throat lozenges or throat sprays as desired continue allergy medicine daily Zyrtec Claritin or Thu Your strep test today was negative. A throat culture will be sent to the laboratory for further testing. IF the test is positive, you will receive a phone call within 48 hours and an appropriate antibiotic will be initiated at that time. If your symptoms persist, change or worsen significantly before you can contact your personal physician then please, without delay, go to the emergency department for further evaluation. Follow-up with PCP in 7-10 days or sooner if needed Follow up with PCP soon in regards to your blood pressure which is elevated above threshold for referral. Blood pressure above 120/80 may indicate pre-hypertension. 138/68 Patient Language: Zimbabwean Prescriptions: New methylprednisolone [Medrol (Bret)] 4 mg tablets,dose pack See Rx Instructions .ROUTE .COMPLEX Qty: 21 0RF Rx Instructions: orally per package directions fluticasone propionate [Flonase Allergy Relief] 50 mcg/actuation spray,suspension 1 spray intranasal DAILY Qty: 16 0RF Rx Instructions: administer into each nostril No Action norgestimate-ethinyl estradiol [Naya] 0.25-0.035 mg tablet albuterol sulfate 90 mcg/actuation HFA aerosol inhaler INHALATION Follow-up/Referrals: Noe,Dion Hathaway MD [Primary Care Provider] Time of Disposition: 11:19 Quality [place] Coma Scale Eyes: Open Verbal: Oriented and Alert Motor: Follows Commands Shayy Coma Total Score: 15
[2025-08-21 11:08] LABS: EDSTREPNEGPOS1 Negative (Negative)
[2025-08-21 11:14] LABS: EDCOVIDSCREEN Negative (Negative); EDINFLUASCREEN Negative (Negative); EDINFLUBSCREEN Negative (Negative)
--- OUTSIDE RECORDS SUMMARY | 2025-08-21 13:10 | XMS_ITS | Clinical Summary ---
Author Organization [facility] Address [address] [place] [address] Care Team Providers Care School Teacher Name Role Phone Dion Liu MD Primary Care Provider [phone] Hieu Carroll MD Unavailable [phone] Allergies Active Allergy Reactions Criticality Noted Date Comments Amoxicillin Vomiting Low 07/17/2017 Pt states she is no longer allergic. 04/25/23 Aspirin Other (See comments) Medium 04/23/2016 Abdominal swelling Oates Nausea Only 12/24/2017 Pt states she is no longer allergic. 04/25/23 Codeine Vomiting Low 07/17/2017 Divalproex Seizures High 01/08/2018 Ibuprofen Swelling Medium 07/02/2018 Raspberry Anaphylaxis High 12/17/2023 Ketorolac Vomiting Low 08/16/2018 Tramadol Hives Medium 04/23/2016 Medications busPIRone (BUSPAR) 5 mg tabletIndications: Generalized Anxiety Disorder Take 1 tablet (5 mg total) by mouth as needed Active ondansetron ODT (ZOFRAN-ODT) 4 mg disintegrating tablet Take 1 tablet (4 mg total) by mouth every 8 (eight) hours as needed for nausea or vomiting 20 tablet 3 Active budesonide (PULMICORT) 1 mg/2 mL nebulizer solutionIndication s:Eosinophilic Esophagitis Mix the content of 1 ampul with 10 g of Splenda and swallow. Do not eat or drink for 30 minutes afterwards. 60 mL 3 4 Active omeprazole (PriLOSEC) 40 mg capsule Take 1 capsule (40 mg total) by mouth daily 90 capsule 1 4 Active cyclobenzaprine (FLEXERIL) 10 mg tabletIndications: Muscle Spasm Take 1 tablet (10 mg total) by mouth 2 (two) times a day as needed for muscle spasms 20 tablet 5 Active albuterol HFA (Ventolin HFA) 90 mcg/actuation inhalerIndications :Upper respiratory tract infection, unspecified type Inhale 2 puffs every 4 (four) hours as needed for wheezing or shortness of breath 8 g 3 5 Active psyllium, aspartame, SF (METAMUCIL SF) 3.4 gram packet Take 1 packet by mouth 2 (two) times a day 60 packet 11 5 04/30/20 26 Active ramelteon (ROZEREM) 8 mg tabletIndications: Sleep-Onset Insomnia Take 1 tablet (8 mg total) by mouth nightly as needed for sleep 30 tablet 5 Active HYDROcodone-acetam inophen (NORCO) 5-325 mg per tabletIndications: Pain Take 1 tablet by mouth every 6 (six) hours as needed for pain for up to 20 doses 20 tablet 5 Active Active Problems Problem Noted Date Diagnosed Date Abdominal pain 04/27/2025 Cholecystitis 04/27/2025 Epigastric burning sensation 04/06/2024 Assessment & Plan (04/06/2024 3:04 PM CDT): Epigastric burning and fluttering sensation, worse with fasting Went to ED two weeks ago was told from GERD Been on pantoprazole daily for 2 weeks with no relief but tolerating without side effects Takes NSAIDs twice a month Mother and father with GERD No smoking, very occasional ETOH use, previous heavy drinker from -. Last EGD from 04/2023 showed findings suggestive of EoE, did not tolerated PPI due to migraine and started on fluticasone, tried for 3-4 months with no relief. Still having persistent solid food dysphagia, no food regurgitation, nausea or vomiting Recent CT from 03/2024 showed hepatic steatosis and mild hepatomegaly Plan Increase pantoprazole to 40 mg BID, take 30 minute before breakfast and dinner Schedule EGD to assess for esophagitis, PUD, gastritis Dysphagia 04/05/2024 Assessment & Plan (04/06/2024 3:02 PM CDT): Last EGD from 04/2023 showed findings suggestive of EoE, did not tolerated PPI due to migraine and started on fluticasone, tried for 3-4 months with no relief. Still having persistent solid food dysphagia, no food regurgitation, nausea or vomiting Plan Will schedule EGD with bx and dilation Increase pantoprazole to 40 mg BID, take 30 minute before breakfast and dinner Diarrhea 04/05/2024 Assessment & Plan (04/06/2024 3:02 PM CDT): Has non-bloody watery loose stool with urgency following eating, worsening over the last 5 years, tried cutting out greasy fatty foods with some relief, no nocturnal symptoms No hematochezia or melena Lost about 10 lbs over the last 2 weeks mostly with diet changes No prior colonoscopy or diarrhea work up Recent CT from 03/2024 showed hepatic steatosis and mild hepatomegaly Plan Clinically sounds like IBS-D Schedule colonoscopy given weight loss and chronically worsening symptoms, depending on findings will decide if additional diarrhea work up indicated. Esophageal candidiasis 01/24/2023 Otorrhea of left ear 07/30/2021 Assessment & Plan (07/30/2021 2:16 PM CDT): Tobradex to the Left ear 7 drops twice daily for 14 days Avoid ear cleaning techniques Avoid water to ears Referral to Otology for Chronic tympanomastoiditis bilaterally How to Use Ear Drops discussed and Handout provided Chronic tympanomastoiditis of both sides 021 Assessment & Plan (07/30/2021 2:17 PM CDT): Referral to Otology for Chronic tympanomastoiditis bilaterally Acute viral syndrome 05/14/2021 Migraine without status migrainosus, not intract able 02/23/2021 Assessment & Plan (02/23/2021 1:43 PM CDT): Referral to Neurology for Migraines Sprain of deltoid ligament of left ankle 03/19/2 021 Foot sprain, left, initial encounter 12/18/2020 Otorrhea of right ear 07/09/2020 Assessment & Plan (02/23/2021 1:42 PM CDT): CT Temporal Bone - call with results Avoid ear cleaning techniques Avoid water to ears Assessment & Plan (02/09/2021 8:46 AM CDT): Increase Ciprodex to 10 drops into the Right ear twice daily Stop Augmentin and start Doxycycline Follow up in two weeks Consider CT Temporal bone once drainage had improved Tubes placed in July 2020 Consider ear culture and switch to Tobradex Assessment & Plan (07/23/2020 2:44 PM CDT): Finish remaining bottle of ear drops in both ears Consider Tobramycin drops Avoid ear cleaning techniques Avoid water to ears Cetirizine (Zyrtec) 10 mg daily for itching Follow up in 6 months, earlier with ear drainage Assessment & Plan (07/09/2020 9:56 AM CDT): Ciprofloxacin ear drops 7 drops into each ear twice daily for 7 days Avoid ear cleaning techniques Avoid water to ears How to Use Ear Drops discussed and Handout provided Chronic otitis media of both ears with effusion 06/17/2020 Assessment & Plan (06/17/2020 4:06 PM CDT): Bilateral myringotomy with T-tube placement in the OR Risks and complications discussed including anesthesia, bleeding, infection, hearing loss, ear tubes may fall out early, fall inwards, stay in longer than a few years, get clogged, fall out and leave a hole in the ear drum that would need to be patched, drain clear fluid. Bilateral hearing loss 06/17/2020 Assessment & Plan (06/17/2020 4:06 PM CDT): Bilateral myringotomy with T-tube placement in the OR Risks and complications discussed including anesthesia, bleeding, infection, hearing loss, ear tubes may fall out early, fall inwards, stay in longer than a few years, get clogged, fall out and leave a hole in the ear drum that would need to be patched, drain clear fluid. Chronic otitis media with effusion, bilateral Overview (06/17/2020): Added automatically from request for surgery [id number] Assessment & Plan (07/08/2020 3:56 PM CDT): Ciprofloxacin ear drops 7 drops into each ear twice daily for 7 days Ear drops discussed and Handout provided Acute right otitis media 08/28/2019 Acute serous otitis media of left ear 08/28/2019 Acute maxillary sinusitis 08/28/2019 Preeclampsia in period 01/18/2018 Encounters Date Type Department Care Team Description 05/29/2025 SHOP/CHAP Subsequent Outreach Transition to Wellness [address] [place] [id number] [facility] Alicia 05/22/2025 SHOP/CHAP Subsequent Outreach Transition to Wellness [address] [place] [id number] [facility] Immunizations Immunization Administration Dates Next Due Influenza, Trivalent, Preservative Free, Intramu scular 09/09/2024 MMR 01/12/2018 Surgical History Surgery Date Site/Laterality Comments TONSILLECTOMY AND ADENOIDECTOMY 10/02/1998 - 10/01/1999 Bilateral MYRINGOTOMY W/ TUBES 10/02/1998 - 10/01/1999 Pt. states shes had myringotomy tubes throughout her life. Her most recent procedure was in 2019. LAPAROSCOPIC CHOLECYSTECTOMY W/ CHOLANGIOGRAPHY 04/28/2025 Medical History Medical History Date Comments Depression Migraine Polycystic ovary syndrome Urinary tract infection Migraine 06/21/2017 Asthma Migraine Migraine Anxiety GERD (gastroesophageal reflux disease) Seizures (HCC) last seizure 6 m o ago Hypertension Dysphagia Family History Medical History Relation Name Comments Cancer Father Hypertension Father Epilepsy Mother Blood Clot Other Cancer Other Heart disease Other Kidney disease Other Seizures Other Stroke Other Relation Name Status Comments Father Mother Alive Other Social History Tobacco Use Types Packs/Day Years Used Date Smoking Tobacco: Never Smokeless Tobacco: Never Tobacco Cessation:Counseling Given: Not Answered Alcohol Use Standard Drinks/Week Comments No 0 (1 standard drink = 0.6 oz pur e alcohol) [facility] Utilities Answer Date Recorded In the past 12 months has [employer] gas, oil, or water company threatened to shut off services in your home? No 05/01/2025 Social Connection and Isolation Panel Answer Date Recorded In a typical week, how many times do you talk on the phone with family, friends, or neighbors? Three times a week 05/01/2025 How often do you get togethe r with friends or relatives? Three times a week 05/01/2025 Attends [employer] Not on file 05/01 Active Member of Clubs or Organizations Not on f ile 05/01/2025 Attends Club or Organization Meetings Not on paul e 05/01/2025 Are you , , di vorced, , never , or living with a partner? 05/01/2025 AUDIT-C Answer Date Recorded Q1: How often do you have a drink containing alcohol? Never 05/01/2025 Q2: How many drinks containi ng alcohol do you have on a typical day when you are drinking? Patient does not drink Q3: How often do you have si x or more drinks on one occasion? Never 05/01/2025 Overall Financial Resource Strain (CARDIA) Answe r Date Recorded How hard is it for you to pa y for the very basics like food, housing, medical care, and heating? Not very hard 05/01/2025 Hunger Vital Sign Answer Date Recorded Within the past 12 months, y ou worried that your food would run out before you got the money to buy more. Never true 05/01/20 25 Within the past 12 months, t he food you bought just didn't last and you didn't have money to get more. Never true 05/01/2025 PRAPARE - Transportation Answer Date Re corded In the past 12 months, has l ack of transportation kept you from medical appointments or from getting medications? No 04/03 In the past 12 months, has l ack of transportation kept you from meetings, work, or from getting things needed for daily living? No 05/01/2025 Housing Stability Vital Sign Answer Abdullahi e Recorded In the last 12 months, was t here a time when you were not able to pay the mortgage or rent on time? No 05/01/2025 Number of Times Moved in the Last Year Not on fi le 05/01/2025 At any time in the past 12 m [place], were you homeless or living in a long-term (including now)? No 05/01/2025 Personal Safety Answer Date Recorded Have you ever been in or are you currently in a harmful physical or emotional relationship or is someone making you feel afraid or unsafe? 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 Gender Identity Not on file Sexual Orientation Not on file Obstetrics History Para Term AB IAB SAB Ectopic Multiple Livin g Live Births 4 1 1 2 2 0 1 1 Date Outcome GA Total Labor Labor/2nd/3rd Weight Sex Type Anes PTL Estefany A1 A5 Name Clin 2010 SAB 2014 SAB 2017 Term 39w 0d 14h 09m 13h 04m/0h 52m/0h 13m 3.887 kg (8 lb 9.1 oz) M Vag-S pont Epidur al N Livin g 2 5 ZAKIYA INGRAM, Alisha Nath MD Complications: Taryn bertrand Hypertension Delivery Location:[facility] Last Filed Vital Signs Vital Sign Reading Time Taken Comments Blood Pressure 133/87 04/30/2025 7:45 AM CDT Pulse 76 04/30/2025 7:45 AM CDT Temperature 36.9 C (98.4 F) 04/30/2025 7:45 AM CDT Respiratory Rate 18 04/29/2025 4:14 PM CDT Oxygen Saturation 94% 04/30/2025 7:45 AM CDT Inhaled Oxygen Concentration - - Weight 120.9 kg (266 lb 9.6 oz) 04/27/2025 1:35 PM CDT Height 160 cm (5' 3) 04/27/2025 7:46 AM CDT Body Mass Index 47.23 04/27/2025 7:46 AM CDT Plan of Treatment Health Maintenance Due Date Last Done Comments Cervical Cancer Screening 1994 Depression Screening 1994 Hepatitis C Screening 1994 Regular Well Visit/Exam 18-64 2012 Pneumococcal vaccine <65 (2 of 2 - PCV) 02/10/2016 02/09/2015 Varicella Vaccines (2 of 2 - 2-dose childhood series) 02/09/2018 03/08/1999 Influenza Vaccine (#1) 2025 , 09/01/2020, 08/09/2019, Additional history exists DTaP/Tdap/Td Vaccine (9 - Td or Tdap) 12/17/2034 12/17/2024, 10/18/2017, 11/24/2009, Additional history exists Hepatitis B Screening Completed 01/24/1995 , 1994, 1994 HPV Vaccines Completed 06/21/2010, 01/01, 11/24/2009 Medical Devices Implanted Type Area Steel Pourer Helper Device Identifier Shelf Expiration Date Model / Serial / Lot [employer] [id number] 1.32mm 4.8mm Modify Ear T Tube Ventilation Ultrasil Sterile Blue - [id number] Implanted:Qty: 1 on 07/02/2020 by Linda Holland DO at [facility] Bilateral: Tympanic Membrane [employer] 08/18/2029 [id number] / / [id number] Insurance [facility] Advance Directives For more information, please contact: [phone] * Full Code (Latest Code Status on File) Date Activated Date Inactivated Comments 04/27/2025 6:03 AM 04/30/2025 4:32 PM * Full Code Date Activated Date Inactivated Comments 05/03/2024 11:57 AM 05/03/2024 6:47 PM * Full Code Date Activated Date Inactivated Comments 05/03/2024 11:57 AM 05/03/2024 11:57 AM * Full Code Date Activated Date Inactivated Comments 04/26/2023 8:07 AM 04/26/2023 3:29 PM * Full Code Date Activated Date Inactivated Comments 04/26/2023 8:07 AM 04/26/2023 8:07 AM Care Teams School Teacher Relationship Specialty Start Date End Date Dion Liu MD PCP - General 01/26/21 [place] [id number] [place] [address] Surgeon Colon and Rectal Surgery 04/30/25
--- OUTSIDE RECORDS SUMMARY | 2025-08-21 13:17 | XMS_ITS | Clinical Summary ---
Author Organization [facility] Address [address] [place] [address] Phone Care Team Providers Care Senior Animator Name Role Phone Dion Liu MD Primary Care Provider [phone] Allergies Active Allergy Reactions Criticality Noted Date [...] Nausea and Vomiting 10 Tablet 4 Active Immunizations Immunization Administration Dates Next Due Td [...] Sign Reading Time Taken Comments Blood Pressure 135/90 04/25/2025 6:56 PM CDT Pulse 74 04/25/2025 6:56 PM CDT Temperature 37.4 C (99.3 F) 04/25/2025 6:56 PM CDT Respiratory Rate 17 04/25/2025 6:56 PM CDT Oxygen Saturation 99% 04/25/2025 6:56 PM CDT Inhaled Oxygen Concentration - - Weight 122.9 kg (271 lb) 04/25/2025 6:56 PM CDT Height 162.6 cm (5' 4) 04/25/2025 6:56 PM CDT Body Mass Index 46.52 04/25/2025 6:56 PM CDT Plan of Treatment Health Maintenance Due Date Last Done Comments Hepatitis C Virus (HCV) Screening 1994 Varicella Immunization (2 of 2 - 2-dose childhood series) 05/31/1999 03/08/1999 Pap Smear 2015 Cervical Cancer Screening ([facility]S) 2024 HPV/Cotest 2024 Influenza Immunization (#1) 2025 12/0 06/2024, 10/01/2021, 10/07/2020, Additional history exists SARS-COV-2 Immunization ( season) 2025 12/16/2021, 10/01/2021, 11/01/2020 Respiratory Syncytial Virus (RSV) Immunization (Adult) (1 [...] on patient's age to complete this topic Insurance MEDICAID [employer] [facility] GENERIC Advance Directives * Full Code (Latest Code Status on File) Date Activated Date Inactivated Comments 12/24/2017 7:18 PM 12/24/2017 10:40 PM CPR-Full Tr eatment: FULL ARREST: Attempt Resuscitation/CPR wit intubation and mechanical ventilation. PRE-ARREST: Use entire range of life support measures to stabilize the patient. Care Teams Senior Animator Relationship Specialty Start Date End Date Dion Liu MD [address] [place] [address] [address] [place] [address] PCP - General Family Medicine 02/17/21
== END 2025-08-21 11:26 | disposition home or self-care (01) ==
PROVIDERS: Emergency Provider Registered Nurse; PCP Family Medicine
DX: J06.9 Acute upper respiratory infection, unspecified (principal); Z20.822 Contact with and (suspected) exposure to COVID-19; I10 Essential (primary) hypertension; J45.909 Unspecified asthma, uncomplicated; K21.9 Gastro-esophageal reflux disease without esophagitis
CPT/HCPCS: 87081; 87426; 87804; 87880; 99213; G0463